=== PATIENT | male | born 1975 | race Caucasian/White ===

== ENCOUNTER 2023-12-26 23:10 | Emergency (ER) | payer OTHER, SELFPAY ==
[2023-12-26 23:14] VITALS: BP 128/74; PULSE 58; RESP 16; TEMP 36.5; O2SAT 97; BMI 24.4
--- NOTE | 2023-12-26 23:39 | ED_ITS ---
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 Pain is rated 8/10. Pt took 800 mg of Ibuprofen @ 1600 500mg of Tylenol @ 2200. Pt currently has a ACL, MCL sprain and torn meniscus. 48-year-old man presenting to the emergency department with concern of back pain. It is concentrated across the low back and radiating up his right side. Pretty intense. Any movement causes pain. Arrived in a wheelchair. Has been treating with ibuprofen acetaminophen this afternoon and did not help. 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 Arrives here with his spouse. This pain does radiate from the right back into his testicle somewhat. He is not describing any dysuria or hematuria. Does not typically have problems with his back. No noted nephrolithiasis. Related Data Home Medications ?Medication ?Instructions ?Recorded ?Confirmed No Known Home Medications 12/26/23 12/26/23 Allergies Allergy/AdvReac Type Severity Reaction Status Date / Time contrast dye Allergy Intermediate Hives Uncoded 12/26/23 23:22 Review of Systems Status of ROS: Reports: 6 or more systems reviewed and unremarkable except as noted in History and below [facility] Social History Non-prescribed substance use: denies use service: Yes Exam Narrative: Exam Narrative: Seems uncomfortable. Seated stiffly in bed legs out front of him. Breathing easily. Exam of the right limited by internal need arrangements. He does accommodate straight leg raise. Left leg straight leg raise less tolerable though not really positive without radiation into his legs. Does cause more pain in his back. Palpation is generalized across the low back and intense pa rticularly into the right side. Pain is over the SI joints as well; not isolated here. Pain also continues along with muscle tension up the right paraspinal musculatures into the low middle back. It is clearly uncomfortable to go to seated position. Heart is in slower rate. Regular rhythm. Skin is warm and dry. Abrasions/scab on the inside of his left distal forearm. Const: Vital Signs, click to edit/add: Vital Signs - 24 hr 12/26/23 23:14 12/27/23 00:13 12/27/23 00:14 Temperature 97.7 F Pulse Rate 44 L 39 L Pulse Rate [Left P ulse Oximeter] 58 L Respiratory Rate 16 Blood Pressure 93/54 L 87/57 L Blood Pressure [Ri ght Upper Arm] 128/74 Pulse Oximetry 97 95 94 Oxygen Delivery Me thod Room Air 12/27/23 00:15 12/27/23 00:16 12/27/23 00:19 Temperature Pulse Rate 40 L 45 L 47 L Pulse Rate [Left P ulse Oximeter] Respiratory Rate Blood Pressure 90/52 L 90/57 L Blood Pressure [Ri ght Upper Arm] Pulse Oximetry 94 95 96 Oxygen Delivery Me thod 12/27/23 00:20 12/27/23 00:21 12/27/23 00:22 Temperature Pulse Rate 51 L 49 L 51 L Pulse Rate [Left P ulse Oximeter] Respiratory Rate Blood Pressure 90/57 L 88/56 L Blood Pressure [Ri ght Upper Arm] Pulse Oximetry 94 95 96 Oxygen Delivery Me thod 12/27/23 00:24 12/27/23 00:25 12/27/23 00:26 Temperature Pulse Rate 53 L 50 L 50 L Pulse Rate [Left P ulse Oximeter] Respiratory Rate Blood Pressure 91/57 L 94/58 L Blood Pressure [Ri ght Upper Arm] Pulse Oximetry 93 96 94 Oxygen Delivery Me thod 12/27/23 00:30 12/27/23 00:31 12/27/23 00:35 Temperature Pulse Rate 46 L 50 L 47 L Pulse Rate [Left P ulse Oximeter] Respiratory Rate Blood Pressure 95/65 Blood Pressure [Ri ght Upper Arm] Pulse Oximetry 98 98 97 Oxygen Delivery Me thod 12/27/23 00:36 12/27/23 00:40 12/27/23 00:41 Temperature Pulse Rate 50 L 48 L 49 L Pulse Rate [Left P ulse Oximeter] Respiratory Rate Blood Pressure 94/63 94/64 Blood Pressure [Ri ght Upper Arm] Pulse Oximetry 98 97 97 Oxygen Delivery Me thod 12/27/23 00:45 12/27/23 00:46 12/27/23 00:50 Temperature Pulse Rate 46 L 47 L 44 L Pulse Rate [Left P ulse Oximeter] Respiratory Rate Blood Pressure 95/64 Blood Pressure [Ri ght Upper Arm] Pulse Oximetry 96 97 97 Oxygen Delivery Me thod Documenting provider has reviewed patient's vital signs: yes Course Vital Signs Vital signs: Initial Vital Signs Temperature 97.7 F 12/26/23 23:14 Temperature Source Temporal Artery Scan 12/26/23 23:14 Pulse Rate 58 L 12/26/23 23:14 Pulse Rhythm Regular 12/26/23 23:14 Respiratory Rate 16 12/26/23 23:14 Blood Pressure 128/74 12/26/23 23:14 Blood Pressure Mean 92 12/26/23 23:14 Blood Pressure Position Sitting 12/26/23 23:14 Pulse Oximetry 97 12/26/23 23:14 Oxygen Delivery Method Room Air 12/26/23 23:14 Vital Signs Temperature 97.7 F 12/26/23 23:14 Pulse Rate 58 L 12/26/23 23:14 Respiratory Rate 16 12/26/23 23:14 Blood Pressure 128/74 12/26/23 23:14 Pulse Oximetry 97 12/26/23 23:14 Oxygen Delivery Method Room Air 12/26/23 23:14 Temperature 97.7 F 12/26/23 23:14 Pulse Rate 44 L 12/27/23 00:50 Respiratory Rate 16 12/26/23 23:14 Blood Pressure 95/64 12/27/23 00:46 Pulse Oximetry 97 12/27/23 00:50 Oxygen Delivery Method Room Air 12/26/23 23:14 Medications Administered Medications: Generic Name Dose Route Start Last Admin Trade Name Freq PRN Reason Stop Dose Admin Sodium Chloride 1,000 mls @ 1,000 mls/hr 12/27/23 00:11 12/27/23 00:14 0.9 % Sodium Chloride 1000 Ml IV 12/27/23 01:10 1,000 mls/hr .Q1H KETAN Administration Sodium Chloride 1,000 mls @ 1,000 mls/hr 12/27/23 00:12 12/27/23 00:21 0.9 % Sodium Chloride 1000 Ml IV 12/27/23 01:11 1,000 mls/hr .Q1H ONE Administration Discontinued Medications Generic Name Dose Route Start Last Admin Trade Name Freq PRN Reason Stop Dose Admin Hydromorphone HCl 1 mg 12/26/23 23:45 12/26/23 23:57 Hydromorphone 0.5 Mg/0.5 Ml Inj IM 12/26/23 23:46 1 mg ONCE ONE Administration Ketorolac Tromethamine 30 mg 12/26/23 23:45 12/26/23 23:57 Ketorolac 30 Mg/Ml Inj IM 12/26/23 23:46 30 mg ONCE ONE Administration Medical Decision Making MDM Narrative Medical decision making narrative: Has some discomfort around the sacral iliac joint but I do not think this is necessarily the source. Really seems to have come placed a back strain. I do not think this is a radicular issue/slipped disc. I think would be most helpful is to break his pain and then perhaps reassess. Discussed options. Will be giving injection of Dilaudid and ketorolac. 2 minutes after receiving Dilaudid and Toradol Mr. Kennedy appears to have experienced a syncopal event. Heart was noted to be bradycardic around 30 and pressures 80s over 50s. Code blue was activated. Did not require cardiac resuscitation. Was bagged briefly. Placed in Trendelenburg and initiated normal saline on pressure bags. Has gradually continue to improve with normalizing pulse in pressures. Generally bradycardic historically. Continue to monitor. I am anticipating discharge with cyclobenzaprine prednisone and ibuprofen for back. Signing off otherwise at change of shift. Medical Records Medical records reviewed: Yes I reviewed the patient's medical records Discharge Plan Discharge Clinical Impression: Low back strain, Muscle spasm, Medication adverse effect Patient Disposition: Home w/ Parent or Adult Condition: Improved Additional Instructions: Stay well-hydrated. Would place ice packs due to recent injury. Consider alternating with warm packs. I would ice 2-3 times daily over the next few days. See handout for stretches/exercises. Prescribing cyclobenzaprine for ?relaxation, prednisone for inflammation from [facility]. Otherwise would take ibuprofen up to 800 mg per dose. Can also take up to 1000 mg of acetaminophen per dose. Alternative to the ibuprofen might be up to 500 mg of naproxen 2 times daily. Follow-up if simply not improved in about 5 days. Prescriptions: No Action No Known Home Medications Stand Alone Forms: [employer] Info Instructions
[2023-12-26] MEDS: HYDROmorphone 0.5 mg/0.5 ml inj 1 MG IM (23:57)
[2023-12-26] MEDS: KETOROLAC 30 MG/ML inj IM (23:57)
[2023-12-27] VITALS (69 sets, daily range): BP systolic 87–110; BP diastolic 52–76; PULSE 39–60; O2SAT 93–100
[2023-12-27] MEDS: 0.9 % SODIUM CHLORIDE 1000 ml 1,000 ML IV ×2 (00:14→00:21)
--- NOTE | 2023-12-27 00:30 | ED.NURSE ---
Pt given IM injection of ordered medication. Pt had sensitivity to medications. PT stated he was beginning to feel the medication start to hit. Pt color began to change to pale, head of bead lowered. Respirations stopped. CODE BLUE button pressed. BVM started on pt, 2 breaths given. Pt became conscious. MD and additional RN arrived. IV started, IV normal saline given via pressure bag. Pt placed on youth nutritional monitor. O2 placed on pt for support. Pt consciousness slowly returning.
--- OUTSIDE RECORDS SUMMARY | 2023-12-27 00:58 | XMS_ITS | Continuity of Care Document ---
Author Name [facility] Organization [facility] Care Team Providers Care Staff Air Defense Officer Name Role Phone [facility] Unavailable Unavailable Problems Combined list of problems from Department of Defense and Veterans Affairs facilities. It does not include entries that were removed or entered in error. 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 [facility] Diagnosis: ICD-10-CM M25.561 Pain in right knee Active Diagnosis [facility] Diagnosis: ICD-10-CM 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, left arm, init Active Diagnosis [facility] Diagnosis: ICD-10-CM Z46.1 Encounter for fitting and adjustment of hearing aid Active Diagnosis [facility] Diagnosis: ICD-10-CM Z01.118 Encntr for exam of ears and hearing w oth abnormal findings Active Diagnosis [facility] Diagnosis: ICD-10-CM D17.1 Benign lipomatous neoplasm of skin, subcu of trunk Active Diagnosis [facility] Medications Combined list of outpatient medications from Department of Defense and Veterans Affairs facilities.Medications provided include 1) outpatient medications from the last 15 months, and 2) patient-reported medications. Medication Details Route Status Patient Instructions Prescription Expires Prescription Number Last Dispense Date Ordering Provider Order Date Order Qty Source IBUPROFEN 600MG TAB IBUPROFE N 600MG TAB Non-VA TAKE ONE TABLET BY MOUTH THREE TIMES A DAY NEEDED Dec 18, 2016 Non-VA Document ed by: Honey HARMON Document ed at: [facility] ORAL ACTIVE PALLAVI HARMON 2016 [facility] Allergies, Adverse Reactions, Alerts Combined list of allergies from Department of Defense and Veterans Affairs facilities. It does not include entries that were removed or entered in error. Substance Category Reaction Severity Reaction type Status Date Reported Comments Source CONTRAST MEDIA Propensity to adverse reactions to drug (finding) active 7 [facility] Immunizations Combined list of available immunizations from the Department of Defense and Veterans Affairs facilities. Immunization Series Date Given Administered By Site Reaction Lot Number CVX Code Drug Box Bender Status Comments Source TDAP 2023 ANJALIGEREMIAS CASTELLANOS E LEFT DELTO ID [id number] 115 complet ed [facility] INFLUENZA, INJECTABLE, QUADRIVALENT, PRESERVATIVE FREE 2023 ANJALIVITA CASTELLANOST E LEFT DELTO ID [id number] A 150 complet ed [facility] COVID-19 (PFIZER), MRNA, LNP-S, PF, 30 MCG/0.3 ML DOSE 2020 208 complet ed Partner:Adeola OSBORNE.Admin istered by:[employer] [employer] 19.([id number]).ND C:[id number].Addr ess:[address] [place]MR[place] T.MN.55 [id number] Dosage: ML 0.3 [facility] INFLUENZA, INJECTABLE, QUADRIVALENT, PRESERVATIVE FREE 2020 150 complet ed [facility] COVID-19 (PFIZER), MRNA, LNP-S, PF, 30 MCG/0.3 ML DOSE 2 2020 208 complet ed PFR; [id number]; 1 [facility] COVID-19 (THE NOCKLIST), MRNA, LNP-S, PF, 30 MCG/0.3 ML DOSE 1 2020 208 complet ed PFR; [id number]; 1 [facility] INFLUENZA, SEASONAL, INJECTABLE, PRESERVATIVE FREE 2018 140 complet ed [facility] INFLUENZA, SEASONAL, INJECTABLE, PRESERVATIVE FREE 2017 140 complet ed [facility] TDAP 2011 115 complet ed [facility] INFLUENZA, SPLIT VIRUS, TRIVALENT, PF 2011 140 complet ed [facility] TDAP 2011 115 complet ed [facility] Results Combined list of recent chemistry, hematology and other laboratory results from Department of Defense and Veterans Affairs, ranging from 15 months to all on record, depending upon the facility. Order Name Results Value Reference Range Date Interpretation Specimen Comments Source BASIC METABOLI C PANEL+MG CREATININE [MASS/VOLU ME] IN SERUM OR PLASMA 1.0 mg/dL 0.7 - 1.2 07/22 Specimen Type: PLASMA No comment entered. Ordering Provider: ASH MCGILL Report Released Date/Time: Jul 16, 2022 10:55 AM Reporting Lab: [facility] [address] Performing Lab: [facility] [address] [place] [facility] BASIC METABOLI C PANEL+MG UREA NITROGEN [MASS/VOLU ME] IN SERUM OR PLASMA 13 mg/dL 8 - 26 07/22 Specimen Type: PLASMA No comment entered. Ordering Provider: ASH MCGILL Report Released Date/Time: Jul 16, 2022 10:55 AM Reporting Lab: [facility] [address] Performing Lab: [facility] [address] [place] [facility] BASIC METABOLI C PANEL+MG GLUCOSE [MASS/VOLU ME] IN SERUM OR PLASMA 116 mg/dL 70 - 100 07/22 H Specimen Type: PLASMA No comment entered. Ordering Provider: ASH MCGILL Report Released Date/Time: Jul 16, 2022 10:55 AM Reporting Lab: [facility] [address] Performing Lab: [facility] [address] [place] [facility] BASIC METABOLI C PANEL+MG SODIUM [MOLES/VOL UME] IN SERUM OR PLASMA 141 mmol/L 136 - 145 07/22 Specimen Type: PLASMA No comment entered. Ordering Provider: ASH MCGILL Report Released Date/Time: Jul 16, 2022 10:55 AM Reporting Lab: [facility] [address] Performing Lab: [facility] [address] [place] [facility] BASIC METABOLI C PANEL+MG POTASSIUM [MOLES/VOL UME] IN SERUM OR PLASMA 3.8 mmol/L 3.5 - 5.1 07/22 Specimen Type: PLASMA No comment entered. Ordering Provider: ASH MCGILL Report Released Date/Time: Jul 16, 2022 10:55 AM Reporting Lab: [facility] [address] Performing Lab: [facility] [address] [place] [facility] BASIC METABOLI C PANEL+MG CHLORIDE [MOLES/VOL UME] IN SERUM OR PLASMA 107 mmol/L 98 - 107 07/22 Specimen Type: PLASMA No comment entered. Ordering Provider: ASH MCGILL Report Released Date/Time: Jul 16, 2022 10:55 AM Reporting Lab: [facility] [address] Performing Lab: [facility] [address] [place] [facility] BASIC METABOLI C PANEL+MG CARBON DIOXIDE, TOTAL [MOLES/VOL UME] IN SERUM OR PLASMA 27 mmol/L 22 - 29 07/22 Specimen Type: PLASMA No comment entered. Ordering Provider: ASH MCGILL Report Released Date/Time: Jul 16, 2022 10:55 AM Reporting Lab: [facility] [address] Performing Lab: [facility] [address] [place] [facility] BASIC METABOLI C PANEL+MG CALCIUM [MASS/VOLU ME] IN SERUM OR PLASMA 9.4 mg/dL 8.4 - 10.2 07/22 Specimen Type: PLASMA No comment entered. Ordering Provider: ASH MCGILL Report Released Date/Time: Jul 16, 2022 10:55 AM Reporting Lab: [facility] [address] Performing Lab: [facility] [address] [place] [facility] BASIC METABOLI C PANEL+MG MAGNESIUM [MASS/VOLU ME] IN SERUM OR PLASMA 2.2 mg/dL 1.6 - 2.6 07/22 Specimen Type: PLASMA No comment entered. Ordering Provider: ASH MCGILL Report Released Date/Time: Jul 16, 2022 10:55 AM Reporting Lab: [facility] [address] Performing Lab: [facility] [address] [place] [facility] BASIC METABOLI C PANEL+MG ANION GAP IN SERUM OR PLASMA 7 mmol/L 5 - 15 07/22 Specimen Type: PLASMA No comment entered. Ordering Provider: ASH MCGILL Report Released Date/Time: Jul 16, 2022 10:55 AM Reporting Lab: [facility] [address] Performing Lab: [facility] [address] [place] [facility] BASIC METABOLI C PANEL+MG GLOMERULAR FILTRATION RATE/1.73 SQ M.PREDICTE D [VOLUME RATE/AREA] IN SERUM, PLASMA OR BLOOD BY CREATININE -BASED FORMULA (CKD-EPI 2020) >90 60 07/22 Specimen Type: PLASMA No comment entered. Ordering Provider: ASH MCGILL Report Released Date/Time: Jul 16, 2022 10:55 AM Reporting Lab: [facility] [address] Performing Lab: [facility] [address] [place] [facility] LIPID PANEL,NO N-FASTIN G CHOLESTERO L [MASS/VOLU ME] IN SERUM OR PLASMA 167 mg/dL <199 - 199 07/22 Specimen Type: PLASMA No comment entered. Ordering Provider: ASH MCGILL Report Released Date/Time: Jul 16, 2022 10:55 AM Reporting Lab: [facility] [address] Performing Lab: [facility] [address] [place] [facility] LIPID PANEL,NO N-FASTIN G CHOLESTERO L IN HDL [MASS/VOLU ME] IN SERUM OR PLASMA 36 mg/dL 40 07/22 L Specimen Type: PLASMA No comment entered. Ordering Provider: ASH MCGILL Report Released Date/Time: Jul 16, 2022 10:55 AM Reporting Lab: [facility] [address] Performing Lab: [facility] [address] [place] [facility] LIPID PANEL,NO N-FASTIN G CHOLESTERO L IN LDL [MASS/VOLU ME] IN SERUM OR PLASMA BY CALCULATIO N 108 mg/dL <99 - 99 07/22 H Specimen Type: PLASMA No comment entered. Ordering Provider: ASH MCGILL Report Released Date/Time: Jul 16, 2022 10:55 AM Reporting Lab: [facility] [address] Performing Lab: [facility] [address] [place] [facility] LIPID PANEL,NO N-FASTIN G CHOLESTERO L IN VLDL [MASS/VOLU ME] IN SERUM OR PLASMA BY CALCULATIO N 23 mg/dL <29 - 29 07/22 Specimen Type: PLASMA No comment entered. Ordering Provider: ASH MCGILL Report Released Date/Time: Jul 16, 2022 10:55 AM Reporting Lab: [facility] [address] Performing Lab: [facility] [address] [place] [facility] LIPID PANEL,NO N-FASTIN G CHOLESTERO L NON HDL [MASS/VOLU ME] IN SERUM OR PLASMA 131 mg/dL <129 - 129 07/22 H Specimen Type: PLASMA No comment entered. Ordering Provider: ASH MCGILL Report Released Date/Time: Jul 16, 2022 10:55 AM Reporting Lab: [facility] [address] Performing Lab: [facility] [address] [place] [facility] LIPID PANEL,NO N-FASTIN G TRIGLYCERI DE [MASS/VOLU ME] IN SERUM OR PLASMA 113 mg/dL <149 - 149 07/22 Specimen Type: PLASMA No comment entered. Ordering Provider: ASH MCGILL Report Released Date/Time: Jul 16, 2022 10:55 AM Reporting Lab: [facility] [address] Performing Lab: [facility] [address] [place] [facility] OCCULT BLOOD FIT X1 SCREEN HEMOGLOBIN .GASTROINT ESTINAL.LO WER [PRESENCE] IN STOOL BY IMMUNOASSA Y --1ST SPECIMEN Negative 07/21 Specimen Type: FECES No comment entered. Ordering Provider: ASH MCGILL Report Released Date/Time: Jul 16, 2022 09:42 AM Reporting Lab: [facility] [address] Performing Lab: [facility] [address] [place] [facility] HEMOGLOB IN A1C HEMOGLOBIN A1C/HEMOGL OBIN.TOTAL IN BLOOD 5.1 4.0 - 6.0 07/16 Specimen Type: BLOOD Comment: Values obtained from A1C measurement s can vary. For typical A1C assays, a reported value of 7.0 could actually be between 6.7 and 7.3 if measured by a reference method. A reported value of 9.0 could actually be between 8.7 and 9.3. Ref: http://www. ngsp.org/[place] Pdata.asp Ordering Provider: ASH MCGILL Report Released Date/Time: May 21, 2022 03:15 PM Reporting Lab: [facility] [address] Performing Lab: [facility] [address] [place] [facility] BASIC METABOLI C PANEL+MG CREATININE [MASS/VOLU ME] IN SERUM OR PLASMA 0.9 mg/dL 0.7 - 1.2 07/16 Specimen Type: PLASMA No comment entered. Ordering Provider: ASH MCGILL Report Released Date/Time: May 21, 2022 03:15 PM Reporting Lab: [facility] [address] Performing Lab: [facility] [address] [place] [facility] BASIC METABOLI C PANEL+MG UREA NITROGEN [MASS/VOLU ME] IN SERUM OR PLASMA 16 mg/dL 8 - 26 07/16 Specimen Type: PLASMA No comment entered. Ordering Provider: ASH MCGILL Report Released Date/Time: May 21, 2022 03:15 PM Reporting Lab: [facility] [address] Performing Lab: [facility] [address] [place] [facility] BASIC METABOLI C PANEL+MG GLUCOSE [MASS/VOLU ME] IN SERUM OR PLASMA 96 mg/dL 70 - 100 07/16 Specimen Type: PLASMA No comment entered. Ordering Provider: ASH MCGILL Report Released Date/Time: May 21, 2022 03:15 PM Reporting Lab: [facility] [address] Performing Lab: [facility] [address] [place] [facility] BASIC METABOLI C PANEL+MG SODIUM [MOLES/VOL UME] IN SERUM OR PLASMA 141 mmol/L 136 - 145 07/16 Specimen Type: PLASMA No comment entered. Ordering Provider: ASH MCGILL Report Released Date/Time: May 21, 2022 03:15 PM Reporting Lab: [facility] [address] Performing Lab: [facility] [address] [place] [facility] BASIC METABOLI C PANEL+MG POTASSIUM [MOLES/VOL UME] IN SERUM OR PLASMA 4.1 mmol/L 3.5 - 5.1 07/16 Specimen Type: PLASMA No comment entered. Ordering Provider: ASH MCGILL Report Released Date/Time: May 21, 2022 03:15 PM Reporting Lab: [facility] [address] Performing Lab: [facility] [address] [place] [facility] BASIC METABOLI C PANEL+MG CHLORIDE [MOLES/VOL UME] IN SERUM OR PLASMA 108 mmol/L 98 - 107 07/16 H Specimen Type: PLASMA No comment entered. Ordering Provider: ASH MCGILL Report Released Date/Time: May 21, 2022 03:15 PM Reporting Lab: [facility] [address] Performing Lab: [facility] [address] [place] [facility] BASIC METABOLI C PANEL+MG CARBON DIOXIDE, TOTAL [MOLES/VOL UME] IN SERUM OR PLASMA 27 mmol/L 22 - 29 07/16 Specimen Type: PLASMA No comment entered. Ordering Provider: ASH MCGILL Report Released Date/Time: May 21, 2022 03:15 PM Reporting Lab: [facility] [address] Performing Lab: [facility] [address] [place] [facility] BASIC METABOLI C PANEL+MG CALCIUM [MASS/VOLU ME] IN SERUM OR PLASMA 9.3 mg/dL 8.4 - 10.2 07/16 Specimen Type: PLASMA No comment entered. Ordering Provider: ASH MCGILL Report Released Date/Time: May 21, 2022 03:15 PM Reporting Lab: [facility] [address] Performing Lab: [facility] [address] [place] [facility] BASIC METABOLI C PANEL+MG MAGNESIUM [MASS/VOLU ME] IN SERUM OR PLASMA 2.2 mg/dL 1.6 - 2.6 07/16 Specimen Type: PLASMA No comment entered. Ordering Provider: ASH MCGILL Report Released Date/Time: May 21, 2022 03:15 PM Reporting Lab: [facility] [address] Performing Lab: [place] [address] [place] [facility] BASIC METABOLI C PANEL+MG ANION GAP IN SERUM OR PLASMA 6 mmol/L 5 - 15 07/16 Specimen Type: PLASMA No comment entered. Ordering Provider: ASH MCGILL Report Released Date/Time: May 21, 2022 03:15 PM Reporting Lab: [facility] [address] Performing Lab: [facility] [address] [place] [facility] BASIC METABOLI C PANEL+MG GLOMERULAR FILTRATION RATE/1.73 SQ M.PREDICTE D [VOLUME RATE/AREA] IN SERUM, PLASMA OR BLOOD BY CREATININE -BASED FORMULA (CKD-EPI) >90 60 07/16 Specimen Type: PLASMA No comment entered. Ordering Provider: ASH MCGILL Report Released Date/Time: May 21, 2022 03:15 PM Reporting Lab: [facility] [address] Performing Lab: [facility] [address] [place] [facility] CBC & DIFF LEUKOCYTES [#/VOLUME] IN BLOOD BY AUTOMATED COUNT 4.64 10*3/uL 4.0 - 11.0 07/16 Specimen Type: BLOOD Comment: Automated Differentia l Performed Ordering Provider: ASH MCGILL Report Released Date/Time: Jul 16, 2022 09:42 AM Reporting Lab: [facility] [address] Performing Lab: [facility] [address] [place] [facility] CBC & DIFF ERYTHROCYT ES [#/VOLUME] IN BLOOD BY AUTOMATED COUNT 4.94 10*6/uL 4.6 - 6.2 07/16 Specimen Type: BLOOD Comment: Automated Differentia l Performed Ordering Provider: ASH MCGILL Report Released Date/Time: Jul 16, 2022 09:42 AM Reporting Lab: [facility] [address] Performing Lab: [facility] [address] [place] [facility] CBC & DIFF HEMOGLOBIN [MASS/VOLU ME] IN BLOOD 15.0 g/dL 13.5 - 17.9 07/16 Specimen Type: BLOOD Comment: Automated Differentia l Performed Ordering Provider: AHS MCGILL Report Released Date/Time: Jul 16, 2022 09:42 AM Reporting Lab: [facility] [address] Performing Lab: [facility] [address] [place] [facility] CBC & DIFF HEMATOCRIT [VOLUME FRACTION] OF BLOOD BY AUTOMATED COUNT 45.0 41 - 54 07/16 Specimen Type: BLOOD Comment: Automated Differentia l Performed Ordering Provider: ASH MCGILL Report Released Date/Time: Jul 16, 2022 09:42 AM Reporting Lab: [facility] [address] Performing Lab: [facility] [address] [place] [facility] CBC & DIFF MCV [ENTITIC VOLUME] BY AUTOMATED COUNT 91.1 fL 80 - 100 07/16 Specimen Type: BLOOD Comment: Automated Differentia l Performed Ordering Provider: ASH MCGILL Report Released Date/Time: Jul 16, 2022 09:42 AM Reporting Lab: [facility] [address] Performing Lab: [facility] [address] [place] [facility] CBC & DIFF MCH [ENTITIC MASS] BY AUTOMATED COUNT 30.4 pg 27 - 33 07/16 Specimen Type: BLOOD Comment: Automated Differentia l Performed Ordering Provider: ASH MCGILL Report Released Date/Time: Jul 16, 2022 09:42 AM Reporting Lab: [facility] [address] Performing Lab: [facility] [address] [place] [facility] CBC & DIFF MCHC [MASS/VOLU ME] BY AUTOMATED COUNT 33.3 g/dL 32.0 - 37.5 07/16 Specimen Type: BLOOD Comment: Automated Differentia l Performed Ordering Provider: ASH MCGILL Report Released Date/Time: Jul 16, 2022 09:42 AM Reporting Lab: [facility] [address] Performing Lab: [facility] [address] [place] [facility] CBC & DIFF PLATELETS [#/VOLUME] IN BLOOD BY AUTOMATED COUNT 202 10*3/uL 150 - 400 07/16 Specimen Type: BLOOD Comment: Automated Differentia l Performed Ordering Provider: ASH MCGILL Report Released Date/Time: Jul 16, 2022 09:42 AM Reporting Lab: [facility] [address] Performing Lab: [facility] [address] [place] [facility] CBC & DIFF PLATELET MEAN VOLUME [ENTITIC VOLUME] IN BLOOD BY AUTOMATED COUNT 11.1 fL 7.4 - 10.4 07/16 H Specimen Type: BLOOD Comment: Automated Differentia l Performed Ordering Provider: ASH MCGILL Report Released Date/Time: Jul 16, 2022 09:42 AM Reporting Lab: [facility] [address] Performing Lab: [facility] [address] [place] [facility] CBC & DIFF NEUTROPHIL S/100 LEUKOCYTES IN BLOOD BY MANUAL COUNT 53.5 07/16 Specimen Type: BLOOD Comment: Automated Differentia l Performed Ordering Provider: ASH MCGILL Report Released Date/Time: Jul 16, 2022 09:42 AM Reporting Lab: [facility] [address] Performing Lab: [facility] [address] [place] [facility] CBC & DIFF LYMPHOCYTE S/100 LEUKOCYTES IN BLOOD BY MANUAL COUNT 28.2 07/16 Specimen Type: BLOOD Comment: Automated Differentia l Performed Ordering Provider: ASH MCGILL Report Released Date/Time: Jul 16, 2022 09:42 AM Reporting Lab: [facility] [address] Performing Lab: [facility] [address] [place] [facility] CBC & DIFF MONOCYTES/ 100 LEUKOCYTES IN BLOOD BY AUTOMATED COUNT 12.7 07/16 Specimen Type: BLOOD Comment: Automated Differentia l Performed Ordering Provider: ASH MCGILL Report Released Date/Time: Jul 16, 2022 09:42 AM Reporting Lab: [facility] [address] Performing Lab: [facility] [address] [place] [facility] CBC & DIFF EOSINOPHIL S/100 LEUKOCYTES IN BLOOD BY AUTOMATED COUNT 3.7 07/16 Specimen Type: BLOOD Comment: Automated Differentia l Performed Ordering Provider: ASH MCGILL Report Released Date/Time: Jul 16, 2022 09:42 AM Reporting Lab: [facility] [address] Performing Lab: [facility] [address] [place] [facility] CBC & DIFF BASOPHILS/ 100 LEUKOCYTES IN BLOOD BY MANUAL COUNT 1.7 07/16 Specimen Type: BLOOD Comment: Automated Differentia l Performed Ordering Provider: ASH MCGILL Report Released Date/Time: Jul 16, 2022 09:42 AM Reporting Lab: [facility] [address] Performing Lab: [facility] [address] [place] [facility] CBC & DIFF ERYTHROCYT E DISTRIBUTI ON WIDTH [RATIO] BY AUTOMATED COUNT 12.0 11.5 - 14.5 07/16 Specimen Type: BLOOD Comment: Automated Differentia l Performed Ordering Provider: ASH MCGILL Report Released Date/Time: Jul 16, 2022 09:42 AM Reporting Lab: [facility] [address] Performing Lab: [facility] [address] [place] [facility] CBC & DIFF LYMPHOCYTE S [#/VOLUME] IN BLOOD BY AUTOMATED COUNT 1.31 10*3/uL 1.0 - 4.0 07/16 Specimen Type: BLOOD Comment: Automated Differentia l Performed Ordering Provider: ASH MCGILL Report Released Date/Time: Jul 16, 2022 09:42 AM Reporting Lab: [facility] [address] Performing Lab: [facility] [address] [place] [facility] CBC & DIFF MONOCYTES [#/VOLUME] IN BLOOD BY AUTOMATED COUNT 0.59 10*3/uL 0.1 - 1.0 07/16 Specimen Type: BLOOD Comment: Automated Differentia l Performed Ordering Provider: ASH MCGILL Report Released Date/Time: Jul 16, 2022 09:42 AM Reporting Lab: [facility] [address] Performing Lab: [facility] [address] [place] [facility] CBC & DIFF NEUTROPHIL S [#/VOLUME] IN BLOOD BY AUTOMATED COUNT 2.48 10*3/uL 2.0 - 7.7 07/16 Specimen Type: BLOOD Comment: Automated Differentia l Performed Ordering Provider: ASH MCGILL Report Released Date/Time: Jul 16, 2022 09:42 AM Reporting Lab: [facility] [address] Performing Lab: [facility] [address] [place] [facility] CBC & DIFF EOSINOPHIL S [#/VOLUME] IN BLOOD BY AUTOMATED COUNT 0.17 10*3/uL 0 - 0.5 07/16 Specimen Type: BLOOD Comment: Automated Differentia l Performed Ordering Provider: ASH MCGILL Report Released Date/Time: Jul 16, 2022 09:42 AM Reporting Lab: [facility] [address] Performing Lab: [facility] [address] [place] [facility] CBC & DIFF BASOPHILS [#/VOLUME] IN BLOOD BY AUTOMATED COUNT 0.08 10*3/uL 0 - 0.2 07/16 Specimen Type: BLOOD Comment: Automated Differentia l Performed Ordering Provider: ASH MCGILL Report Released Date/Time: Jul 16, 2022 09:42 AM Reporting Lab: [facility] [address] Performing Lab: [facility] [address] [place] [facility] CBC & DIFF IG(META,MY NATALI,PRO) 0.2 07/16 Specimen Type: BLOOD Comment: Automated Differentia l Performed Ordering Provider: ASH MCGILL Report Released Date/Time: Jul 16, 2022 09:42 AM Reporting Lab: [facility] [address] Performing Lab: [facility] [address] [facility] CBC & DIFF IMMATURE GRANULOCYT ES [PRESENCE] IN BLOOD BY AUTOMATED COUNT 0.01 10*3/uL 0 - 0.1 07/16 Specimen Type: BLOOD Comment: Automated Differentia l Performed Ordering Provider: ASH MCGILL Report Released Date/Time: Jul 16, 2022 09:42 AM Reporting Lab: [facility] [address] Performing Lab: [facility] [address] [facility] Vital Signs Combined list of inpatient and outpatient Vital Signs from Department of Defense and Veterans Affairs, ranging from 12 months to all on record, depending upon the facility. Vital Sign Value Date Comments Source Encounters Combined list of: 1) Encounters from Department of Veterans Affairs facilities going back up to thelast 18 months. 2) Encounters from the Department of Defense facilities going back up to 280 months. Location Location Details Encounter Type Encounter Number Reason For Visit Attending Provider ADM Date DC Date Status Disposition Source [facility] Outpatient Encounter 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
CHUCK SAGE 01/02 [facility] CONFORMITY EVALUATION [id number] Diagnos is: ICD-10- CM Z46.1 Encount er for fitting and adjustm ent of hearing aid<br/ > CHUCK SAGE 03/06 [facility] HEARING AID REPAIR/MOD IFYING [id number] Diagnos is: ICD-10- CM Z46.1 Encount er for fitting and adjustm ent of hearing aid<br/ > ALEKSANDR SERRANO 04/10 [facility] Outpatient Encounter [id number] 06/29 [facility] Outpatient Encounter [id number] 07/22 [facility] OFFICE O/P EST MOD 30 MIN [id number] Diagnos is: ICD-10- CM 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
CHINMAY MCGILL A 07/22 [facility] Outpatient Encounter [id number] 10/04 [facility] Outpatient Encounter [id number] JOHANNY SÁNCHEZ 10/07 [facility] Outpatient Encounter [id number] 10/19 [facility] Outpatient Encounter [id number] 11/03 [facility] OFFICE O/P EST MOD 30 MIN [id number] Diagnos is: ICD-10- CM M25.561 Pain in right knee
Nikolai BOWSER L 11/05 [facility] ORTHOTIC MGMT&TRAIN G 1ST ENC [id number] Diagnos is: ICD-10- CM M25.561 Pain in right knee
KEE MARCUS 11/05 [facility] Outpatient Encounter [id number] 12/07 [facility] Procedures Combined list of: 1) Procedures from Department of Veterans Affairs facilities going back up to thelast 18 months, not all [place] non-surgical procedures are included; 2) All procedures from the Department of Defense facilities. Procedure Procedure Type Code Date Perfomer Comments Sourc e FITTING OF SPECTACLES, EXCEP T FOR APHAKIA; MONOFOCAL 01/24/2002 [facility] HEPATITIS B VACCINE (HEPB), ADULT DOSAGE, 3 DOSE SCHEDULE, FOR INTRAMUSCULAR USE 03/05/2004 [facility] UNLISTED VACCINE/TOXOID 05/24/2003 [facility] HEPATITIS B VACCINE (HEPB), ADULT DOSAGE, 3 DOSE SCHEDULE, FOR INTRAMUSCULAR USE 05/03/2003 [facility] EXERCISE CLASSES, NON-PHYSICIAN PROVIDER, PER SESSION 04/29/2002 [facility] Social History Combined list of available smoking, tobacco, and other social history from Department of Defense and Veterans Affairs facilities. Social History Type Response Date Comment Sourc e Tobacco smoking status [place]-TOBACCO NEVER USED 07/23/2023 [place] [facility] of [facility] 30 [facility] WA[facility]UP 07/16/2022 [facility] of [facility] OME DAYS 07/20/2020 [facility] History of [facility] 01/07/2019 [facility] History of tobacco use LIFETIME NON-TOBA CONCESSION SUPERVISOR USER 12/18/2016 [facility] This section is an empty social history section. [facility] Plan of Care List of future care activities from Department of Veterans Affairs facilities. Additional future care activities may be listed in the Assessment and Plan section. 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
--- OUTSIDE RECORDS SUMMARY | 2023-12-27 00:58 | XMS_ITS | Clinical Summary ---
Author Organization [facility] Address [place], [place] [address] Care Team Providers Care Press Operator [employer] Name Role Phone [place] Primary Care Provider [phone] Medications No known medications Active Problems No known active problems Social History Tobacco Use Types Packs/Day Years Used Date Smoking Tobacco: Some Days Pipe Started: 2021 Passive Smoke Exposure: Never Smokeless Tobacco: Never Tobacco Cessation:Ready to Q uit: No; Counseling Given: No Alcohol Use Standard Drinks/Week Comments Yes 0 (1 standard drink = 0.6 oz pur e alcohol) Sex and Gender Information Value Date Recorded Sex Assigned at Not on file Gender Identity Not on file Sexual Orientation Not on file Obstetrics History Plan of Treatment Health Maintenance Due Date Last Done Comments Tdap 1985 Depression screening for age 12+ 1986 HIV for age 15-65 1989 BMI (ht and wt on same day) for age 18+ 1992 Hepatitis C screening for ag e 18-79 1992 Tetanus booster 1994 Colonoscopy through age 75 07/14/2019 Lipids for age 45-75 07/14/2019 COVID-19 vaccine series ( season) 2023 Influenza for age 9-49 12/20/2023 Pneumococcal series for age 6-64 Aged Out No longer eligible based on patient's age to complete this topic Care Teams Press Operator [employer] Relationship Specialty Start Date End Date [place] [employer] [place] [phone] PCP - General 06/22/23
--- OUTSIDE RECORDS SUMMARY | 2023-12-27 00:58 | XMS_ITS | Encounter Summary ---
Author Name [facility] [place] [facility] Address [address] [place] [address] Care Team Providers Care Company Pilot Name Role Phone ADRIAN CERVANTES Primary Care Provider Unavailabl e Insurance Providers: All historical and current Section Date Range: From patient's date of to the date document was created. This section includes the names of all active insurance providers for the patient. Insurance Provider Type of Coverage Plan Name Start of Policy Coverage End of Policy Coverage Group Number Member ID Insurance Provider's Telephone Number Policy Mercer's Name Patient's Relationship to Policy Mercer [facility] AID (WNR) May 21, 2010 [id number] [phone] LUCY COPELAND PATIENT Selected Encounter This section includes the information on record at [place] for the Encounter. Date/Time Encounter Type Encounter Description Reason Provider Source Nov 06, 2023 02:30 PM OFFICE O/P EST MOD 30 MIN PRIMARY CARE/MEDICINE ICD-10-CM M25.561 Pain in right knee MARGOT LI E Encounter Template Text not used by [place] Assessments - Encounter Diagnoses This section includes the primary and secondary diagnoses documented for the Encounter. Date/Time Primary/Secondary Diagnosis Diagnosis Name Provider Source Nov 06, 2023 02:57 PM PRIMARY Pain in right knee QUE LI [facility] Plan of Treatment: Future Appointments (+ 6 months) and Future Tests (+/- 45 days) The Plan of Treatment section includes future care activities for the patient from all [facility]. This section includes future appointments and future orders which are active, pending or scheduled. Future Appointments This section includes appointments that were scheduled to occur 6 months from the date of the Encounter, up to a maximum of 20 appointments. The data comes from all [place] treatment facilities. Appointment Date/Time Appointment Type Appointme nt Facility Name Dec 07, 2023 07:45 PM [facility] Feb 02, 2024 03:00 PM AMBULATORY - SURGERY [facility] Active, Pending, and Scheduled Orders This section includes a listing of several types of active, pending, and scheduled orders, including clinic medications orders, diagnostic test orders, procedure orders and consult orders; where the start date of the order is 45 days before the date of the Encounter or 45 days after the date of theEncounter. The data comes from all [place] treatment facilities. Test Date/Time Test Type Test Details Facility Name Dec 08, 2023 03:54 PM Consult Order ORTHOPEDIC S OUTPT-HIP/KNEE Cons [employer] Choice [facility] Vital Signs: All taken on the encounter date This section contains inpatient and outpatient Vital Signs collected on the date of the Encounter. Date/Time Temperature Pulse Blood Pressure Respiratory Rate SP02 Pain Height Weight Body Mass Index Source Nov 06, 2023 02:32 PM 97.9 54 117/76 16 98 2 182.6 27 [facility] Social History: Smoking Status (Most current) and Tobacco Use (All prior to encounter date) This section includes the most current, and the historical, smoking and tobacco- related health factors from the [place] facility where the Encounter took place. Current Smoking Status This section includes the most current smoking, or tobacco-related health factor, from the [place] facility where the Encounter took place. Date/Time Current Smoking Status Comment Samanta portillo Jul 23, 2023 02:00 PM NE-TOBACCO NEVER USED [facility] Tobacco Use History This section includes a history of the smoking, or tobacco-related health factors, that were collected on or before the date of the Encounter. The data comes from the [place] facility where the Encounter took place. Date/Time Smoking Status/Tobacco Use Comment F acility Jul 16, 2022 10:00 AM NE-TOBACCO DOESNT USE WI 30 MIN WAKEUP [facility] Jul 16, 2022 10:00 AM VA-TOBACCO USE 1 TO < 5 YEARS [facility] Jul 16, 2022 10:00 AM VA-TOBACCO USE ADVICE [facility] Jul 16, 2022 10:00 AM VA-TOBACCO USE TEST BORER HELPER NO [facility] Jul 16, 2022 10:00 AM VA-TOBACCO USE MED NO [facility] Jul 16, 2022 10:00 AM VA-TOBACCO USER SOME DAYS [facility] Jul 20, 2020 03:30 PM VA-TOBACCO DOESNT USE WI 30 MIN WAKEUP [facility] Jul 20, 2020 03:30 PM VA-TOBACCO USE 5 TO 15 YEARS [facility] Jul 20, 2020 03:30 PM VA-TOBACCO USE ADVICE [facility] Jul 20, 2020 03:30 PM VA-TOBACCO USE TEST BORER HELPER NO [facility] Jul 20, 2020 03:30 PM VA-TOBACCO USE MED NO [facility] Jul 20, 2020 03:30 PM VA-TOBACCO USER SOME DAYS [facility] Jan 07, 2019 03:22 PM VA-TOBACCO NEVER USED [facility] Dec 18, 2016 01:05 PM LIFETIME NON-TOBACCO USER [facility] Radiology Reports: +/- 30 days of the encounter Radiology Reports For cases when an order for radiology services may have been completed prior to the date of the Encounter, the report list includes the Radiology Reports that were completed up to 30 days before dateof the Encounter. For cases when an order for radiology services may have been completed after the date of the Encounter, the report list also includes the Radiology Reports that were completed up to30 days after date of the Encounter. The data comes from all [facility] facilities. Date/Time Radiology Report Provider Source Nov 06, 2023 02:57 PM KNEE RIGHT 3 VIEWS : DAVID COPELAND [id number] -[phone] M Ex Date: NOV 06, 2023@14:57 Req Phys: MARYBETH LI Loc: [facility] PACT ROVER 4F (Req'g Loc) Img Loc: MAIN X-RAY Service: [place] [address] (Case [id number] COMPLETE) KNEE RIGHT 3 VIEWS (RAD Detailed) CPT:49287 Proc Modifiers : STANDING RIGHT Reason for Study: persisting medial right knee pain Clinical History: persisting medial right knee pain Responsible provider name and phone number to notify for critical findings if other than user placing the order and pager listed below: User placing orders pager: [phone] LAST CREATININE 1.0 (07/23/23) Report Status: Verified Date Reported: NOV 06, 2023 Date Verified: NOV 06, 2023 Assistant Coach E-Sig:/ES/KEITH SALAZAR MD Report: EXAMINATION: KNEE RIGHT 3 VIEWS, 11/06/2023 2:57 PM COMPARISON: None HISTORY: Reason for Study: persisting medial right knee pain persisting medial right knee pain Responsible provider name and phone number to notify for critical findings if other than user placing the order and pager listed below: User placing orders pager: [phone] LAST CREATININE 1.0 (07/23/23) Impression: Slight/early narrowing of the medial compartment joint space. Lateral and patellofemoral compartment joint spaces appear maintained. No acute fracture or dislocation is identified. Trace amount of suprapatellar joint fluid. Fabella, anatomic variant. Primary Interpreting Staff: KEITH SALAZAR MD, RADIOLOGIST (Assistant Coach) /JRT KEITH SALAZAR [facility] Encounter Notes: All associated encounter notes This section contains the clinical notes associated to the Encounter. Date/Time Encounter Note(s) Provider Source Nov 06, 2023 02:43 PM INTERNAL MEDICINE NOTE: LOCAL TITLE: MEDICINE CLINIC NOTE STANDARD TITLE: INTERNAL MEDICINE NOTE DATE OF NOTE: NOV 06, 2023@14:43 ENTRY DATE: NOV 06, 2023@14:43:54 AUTHOR: MARYBETH LI COSIGNER: URGENCY: STATUS: COMPLETED MEDICINE CLINIC NOTE Has ADDENDA Nurse's notes reviewed from today. DAVID COPELAND is a 48 year old MALE who presents to the [facility] (primary IMDL-aevhfo-dcw available) for right knee pain. Patient reports right medial knee pain for the past 7-8 months. Noted an insidious onset of pain in the knee. no falls or trauma, no previous injuries or surgeries. 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 pain localized to the medial aspect. non radiating. hurts all the time now, wakes him from sleep sometimes. feels stiff in the AM. no redness or swelling. has not done anything for treatment. Active problems - Computerized Problem List is the source for the followin. Impacted cerumen in right ear 2. Seborrheic dermatitis 3. Ulnar neuropathy of left arm 4. Exposure to potentially hazardous substance ([facility] [id number]) - Entered through [facility] MARIA ALEJANDRA Documentation Initiative Allergies: CONTRAST MEDIA (Dec 18, 2016) Active and Recently Outpatient Medications (including Supplies): Active Non-VA Medications Status 1) Non-VA IBUPROFEN 600MG TAB 600MG MOUTH THREE TIMES A ACTIVE DAY NEEDED MEDICATION RECONCILIATION Outpatient At this visit I have reviewed the medication list, and discussed relevant medications with the patient/surrogate. An updated patient medication list was given to the participant(s). (x) No Change ( ) Change/New: I have noted this on the patient's copy of the medication list. Education on NEW Medication: I have reviewed the medication list for possible drug:drug interactions or contraindications prior to ordering NEW medications during this visit. ( )Patient instructed. I noted new medication on patient's copy of the medication list. Patient sent to Pharmacist for education on new medication. ( )Patient ( )Family Member ( )Caregiver indicated readiness to learn and has been instructed on action, dose, frequency and side effects of the new medication and I noted new medication on participant's copy of the medication list. ( ) Verbalizes understanding of instructions. ( ) Needs additional reinforcement of instructions(sent to Pharmacist). ( )Patient unable to participate in learning/instruction. Family/Social History: () Not applicable to today's visit. EXAM: VS: Temp: 97.9 F [36.6 C] (11/06/2023 14:32) BP: 117/76 (11/06/2023 14:32) Pulse:54 (11/06/2023 14:32) Resp: 16 (11/06/2023 14:32) Pain: 2 (11/06/2023 14:32) Weight: WEIGHTS IN LAST 6 MONTHS: 182.6 (NOV 06, 2023@14:32:23) 186 (JUL 23, 2023@13:14:16) General Appearance: NAD Mental Status: A&Ox3 Neck: Chest/T Spine: Cardiac: JVP: Lungs: Abdomen: Extremities: right knee without erythema or edema or deformity. has full active and passive rom. ttp along the medial aspect of the knee. no laxity noted. did have pain on the valgus test. Edema ()None ()1+ ()2+ ()3+ ()4+ Pulses ()HOSE COUPLING JOINER ()1+ ()2+ ()3+ ()4+ Gait: Data/Labs: LAB RESULTS LAST 48 HRS - NONE FOUND ( )Patient was informed of available lab, imaging, and other study results associated with today's visit. Assessment and Plan: #. Right Knee Pain Possible MCL injury. will obtain an XR and get him a brace for the knee. Rec he start RICE. As his symptoms have been present for >6 months and seem to be worsening, will obtain an MRI if XR is normal. Consider Ortho consult pending those results. (x) Patient/Caregiver indicates readiness to learn, verbalizes understanding, agreement and satisfaction with the treatment plan. Patient/Caregiver doesn't have any further questions today. /justin/ Marybeth Li PA-C Physician Candy Supervisor Signed: 11/06/2023 14:57 11/17/2023 ADDENDUM STATUS: COMPLETED reviewed knee xray by phone. he reports feeling a better, but not not to baseline. as described above, no report of injury/strain per se. suggested starting w/PT, which he is agreeable to, before pursuing more imaging. /es/ T. Tova Cervantes MD STAFF PHYSICIAN Signed: 11/17/2023 10:29 MARYBETH LI [facility] Nov 06, 2023 02:35 PM INTERNAL MEDICINE OUTPATIENT NOTE: LOCAL TITLE: MEDICINE CLINIC NURSING NOTE STANDARD TITLE: INTERNAL MEDICINE OUTPATIENT NOTE DATE OF NOTE: NOV 06, 2023@14:35 ENTRY DATE: NOV 06, 2023@14:35:49 AUTHOR: NINA SHEA EXP COSIGNER: URGENCY: STATUS: COMPLETED TYPE OF VISIT: Appointment Check In Type of appointment: In-person appointment REASON FOR VISIT: R Knee pain ALLERGIES: CONTRAST MEDIA (Dec 18, 2016) VITAL SIGNS: Blood Pressure: 117/76 (11/06/2023 14:32) Pulse: 54 (11/06/2023 14:32) Respiration: 16 (11/06/2023 14:32) Temperature: 97.9 F [36.6 C] (11/06/2023 14:32) Weight: 182.6 lb [82.83 kg] (11/06/2023 14:32) Height: 69.5 in [176.5 cm] (07/23/2023 13:14) BMI: 26.6 O2 Sat: 98% (11/06/2023 14:32) Pain: 2 (11/06/2023 14:32) PAIN SCREEN: Patient is having significant pain that they would like to talk to their provider about today. Old (Chronic) (began more than 6 months ago) Patient states their average pain this past week is 6 Patient states the average number on how the chronic pain affects their enjoyment of life the past week is 5 Patient states during the past week the average number on how the pain has interfered with their general activity is 5 MEDICATION Over the Counter/Herbal Medications: The patient states that they take some outside medications and/or herbals. COVID-19 Immunization: Refused Pfizer Monovalent COVID-19 vaccine Immunization: COVID-19 (PFIZER), MRNA, LNP-S, PF, ANA ROSA-SUCROSE, 30 MCG/0.3 ML (AGES 12+ YEARS) Refusal Reason: PATIENT DECISION Patient refuses all immunization(s) in the COVID-19 group Date Documented: 11/06/23 14:37 /justin/ NINA SHEA LPN Signed: 11/06/2023 14:38 NINA SHEA [facility]
--- OUTSIDE RECORDS SUMMARY | 2023-12-27 00:58 | XMS_ITS | Encounter Summary ---
Author Name [facility] [place] [facility] [place] Address [address] [place] [address] Care Team Providers Care Housing Quality Standard Inspector Name Role Phone ADRIAN MCGILL Primary Care Provider Unavailabl e Insurance Providers: [...] Mercer's Name Patient's Relationship to Policy Mercer BCBS [facility] (WNR) MEDICAID MEDIC AID (WNR) May 21, 2010 [id number] [phone] LUCY COPELAND PATIENT Selected Encounter This section includes the information on record at [place] for the Encounter. Date/Time Encounter Type Encounter Description Reason Pro vider Source Oct 20, 2023 02:13 PM Outpatient Encounter PRIMARY CARE/MEDICINE IHE Encounter Template Text not used by [place] Plan of Treatment: Future Appointments (+ 6 months) and Future Tests (+/- 45 days) The Plan of Treatment section includes future care activities for the patient from all [place] treatmentfacilities. This section includes future appointments and future orders which are active, pending or scheduled. Future Appointments This section includes appointments that were scheduled to occur 6 months from the date of the Encounter, up to a maximum of 20 appointments. The data comes from all [place] treatment facilities. Appointment Date/Time Appointment Type Appointme nt Facility Name Nov 06, 2023 02:30 PM AMBULATORY - MEDICINE HUSSEIN RAHMAN [facility] Nov 06, 2023 03:00 PM AMBULATORY - NONE [place] L[place] [facility] Nov 06, 2023 03:15 PM AMBULATORY - NONE [place] [facility] Dec 07, 2023 07:45 PM AMBULATORY - NONE [place] [facility] Feb 02, 2024 03:00 PM AMBULATORY - SURGERY [place] LEONLIS [facility] Social History: Smoking Status (Most current) and Tobacco Use (All prior to encounter date) This section includes the most current, and the historical, smoking and tobacco- related health factors from the [place] facility where the Encounter took place. Current Smoking Status This section includes the most current smoking, or tobacco-related health factor, from the [place] facility where the Encounter took place. Date/Time Current Smoking Status Comment Samanta portillo Jul 23, 2023 02:00 PM VA-TOBACCO NEVER USED [facility] Tobacco Use History This section includes a history of the smoking, or tobacco-related health factors, that were collected on or before the date of the Encounter. The data comes from the [place] facility where the Encounter took place. Date/Time Smoking Status/Tobacco Use Comment F acility Jul 16, 2022 10:00 AM VA-TOBACCO DOESNT USE WI 30 MIN WAKEUP [facility] Jul 16, 2022 10:00 AM VA-TOBACCO USE 1 TO < 5 YEARS [facility] Jul 16, 2022 10:00 AM VA-TOBACCO USE ADVICE [facility] Jul 16, 2022 10:00 AM VA-TOBACCO USE WOOD CARVER NO [facility] Jul 16, 2022 10:00 AM VA-TOBACCO USE MED NO [facility] Jul 16, 2022 10:00 AM VA-TOBACCO USER SOME DAYS [facility] Jul 20, 2020 03:30 PM VA-TOBACCO DOESNT USE WI 30 MIN WAKEUP [facility] Jul 20, 2020 03:30 PM VA-TOBACCO USE 5 TO 15 YEARS [facility] Jul 20, 2020 03:30 PM VA-TOBACCO USE ADVICE [facility] Jul 20, 2020 03:30 PM VA-TOBACCO USE WOOD CARVER NO [facility] Jul 20, 2020 03:30 PM VA-TOBACCO USE MED NO [facility] Jul 20, 2020 03:30 PM VA-TOBACCO USER SOME DAYS [facility] Jan 07, 2019 03:22 PM VA-TOBACCO NEVER USED [facility] Dec 18, 2016 01:05 PM LIFETIME NON-TOBACCO USER [facility] Radiology Reports: +/- 30 days of [...] the Encounter. The data comes from all [place] treatment facilities. Date/Time Radiology Report Provider Source Nov 06, 2023 02:57 PM KNEE RIGHT 3 VIEWS : DAVID COPELAND [id number] -1975 M Exm Date: NOV 06, 2023@14:57 Req Phys: SUDHIR BOWSER Loc: [facility] PACT ROVER 4F (Req'g Loc) Img Loc: MAIN X-RAY Service: [place] [address] (Case [id number] COMPLETE) KNEE RIGHT 3 VIEWS (RAD Detailed) CPT:47430 Proc Modifiers : STANDING RIGHT Reason for Study: persisting medial right knee pain Clinical History: persisting medial right knee pain Responsible provider name and phone number to notify for critical findings if other than user placing the order and pager listed below: User placing orders pager: [phone] LAST CREATININE 1.0 (07/23/23) Report Status: Verified Date Reported: NOV 06, 2023 Date Verified: NOV 06, 2023 Marketing Project Lead E-Sig:/ES/KEITH SALAZAR MD Report: EXAMINATION: KNEE RIGHT 3 VIEWS, 11/06/2023 2:57 PM COMPARISON: None HISTORY: Reason for Study: persisting medial right knee pain persisting medial right knee pain Responsible provider name and phone number to notify for critical findings if other than user placing the order and pager listed below: User placing orders pager: [phone] LAST CREATININE 1.0 (07/23/23) Impression: Slight/early narrowing of the medial compartment joint space. Lateral and patellofemoral compartment joint spaces appear maintained. No acute fracture or dislocation is identified. Trace amount of suprapatellar joint fluid. Fabella, anatomic variant. Primary Interpreting Staff: KEITH SALAZAR MD, RADIOLOGIST (Marketing Project Lead) /JRT KEITH SALAZAR [facility] Encounter Notes: All associated encounter notes This section contains the clinical notes associated to the Encounter. Date/Time Encounter Note(s) Provider Source Oct 20, 2023 02:13 PM REPORT OF CONTACT: LOCAL TITLE: PATIENT CONTACT NOTE STANDARD TITLE: REPORT OF CONTACT DATE OF NOTE: OCT 20, 2023@14:13 ENTRY DATE: OCT 20, 2023@14:13:57 AUTHOR: CHICO MADISON EXP COSIGNER: URGENCY: STATUS: COMPLETED PATIENT CONTACT NOTE Has ADDENDA Patient contact Name of : DAVID COPELAND Name/Relationship of Contact if other than [place]: Date & Time of Contact: Oct@14:14 Type of Contact: VAOS Reason for Contact: station id: [id number] preferred modality: FACE TO FACE phone number: [phone] email: [email or web address] preferred dates:10/27/2023 AM,10/27/2023 PM reason code:MEDICALISSUE comments:Inner right knee pain. /justin/ CHICO MADISON AMSA Signed: 10/20/2023 14:14 Receipt Acknowledged By: 10/20/2023 14:32 /justin/ STEFANIA SAWYER RN RN Pact Curator Herbarium 10/20/2023 ADDENDUM STATUS: COMPLETED Reviewed chart noting attempts have been made to schedule clinic appointment without success. Assigned Provider without clinic availability 11/15. Entered rtc clinic appointment request with Yoel. /justin/ STEFANIA SAWYER RN RN Pact Curator Herbarium Signed: 10/20/2023 14:35 CHICO MADISON [facility]
--- OUTSIDE RECORDS SUMMARY | 2023-12-27 00:58 | XMS_ITS | Encounter Summary ---
Author Name [facility] [place] [facility] [place] Address [address] [place] [address] Care Team Providers Care Director Of Rehabilitation Name Role Phone ADRIAN MCGILL Primary Care [...] Name Patient's Relationship to Policy Mercer BCBS [facility] (WNR) MEDICAID MEDIC AID (WNR) May 21, 2010 [id number] [phone] LUCY COPELAND PATIENT Selected Encounter This section includes the information on record at [place] for the Encounter. Date/Time Encounter Type Encounter Description Reason Pro vider Source Oct 05, 2023 03:18 PM Outpatient Encounter PRIMARY CARE/MEDICINE IHE Encounter Template Text not used by [place] Plan of Treatment: Future Appointments (+ 6 months) and Future Tests (+/- 45 days) The Plan of Treatment section includes future care activities for the patient from all [place] treatmentfacilities. This section includes future appointments and future orders which are active, pending or scheduled. Future Appointments This section includes appointments that were scheduled to occur 6 months from the date of the Encounter, up to a maximum of 20 appointments. The data comes from all [place] treatment facilities. Appointment Date/Time Appointment Type Appointme nt Facility Name Nov 06, 2023 02:30 PM AMBULATORY - MEDICINE HUSSEIN RAHMAN [facility] Nov 06, 2023 03:00 PM AMBULATORY - NONE [place] [facility] Nov 06, 2023 03:15 PM AMBULATORY - NONE [place] [facility] Dec 07, 2023 07:45 PM AMBULATORY - NONE [place] [facility] Feb 02, 2024 03:00 PM AMBULATORY - SURGERY KARYN LEONLIS [facility] Social History: Smoking Status (Most current) and Tobacco Use (All prior to encounter date) This section includes the most current, and the historical, smoking and tobacco- related health factors from the [place] facility where the Encounter took place. Current Smoking Status This section includes the most current smoking, or tobacco-related health factor, from the [place] facility where the Encounter took place. Date/Time Current Smoking Status Comment Samanta portillo Jul 23, 2023 02:00 PM VA-TOBACCO NEVER USED [facility] Tobacco Use History This section includes a history of the smoking, or tobacco-related health factors, that were collected on or before the date of the Encounter. The data comes from the [place] facility where the Encounter took place. Date/Time Smoking Status/Tobacco Use Comment F acility Jul 16, 2022 10:00 AM VA-TOBACCO DOESNT USE WI 30 MIN WAKEUP [facility] Jul 16, 2022 10:00 AM VA-TOBACCO USE 1 TO < 5 YEARS [facility] Jul 16, 2022 10:00 AM VA-TOBACCO USE ADVICE [facility] Jul 16, 2022 10:00 AM VA-TOBACCO USE BODY PRESS OPERATOR NO [facility] Jul 16, 2022 10:00 AM VA-TOBACCO USE MED NO [facility] Jul 16, 2022 10:00 AM VA-TOBACCO USER SOME DAYS [facility] Jul 20, 2020 03:30 PM VA-TOBACCO DOESNT USE WI 30 MIN WAKEUP [facility] Jul 20, 2020 03:30 PM VA-TOBACCO USE 5 TO 15 YEARS [facility] Jul 20, 2020 03:30 PM VA-TOBACCO USE ADVICE [facility] Jul 20, 2020 03:30 PM VA-TOBACCO USE BODY PRESS OPERATOR NO [facility] Jul 20, 2020 03:30 PM VA-TOBACCO USE MED NO [facility] Jul 20, 2020 03:30 PM VA-TOBACCO USER SOME DAYS [facility] Jan 07, 2019 03:22 PM VA-TOBACCO NEVER USED [facility] Dec 18, 2016 01:05 PM LIFETIME NON-TOBACCO USER [facility] Encounter Notes: All associated encounter notes This section contains the clinical notes associated to the Encounter. Date/Time Encounter Note(s) Provider Source Oct 05, 2023 03:18 PM REPORT OF CONTACT: LOCAL TITLE: PATIENT CONTACT NOTE STANDARD TITLE: REPORT OF CONTACT DATE OF NOTE: OCT 05, 2023@15:18 ENTRY DATE: OCT 05, 2023@15:18:31 AUTHOR: MIKE BARRIOS EXP COSIGNER: URGENCY: STATUS: COMPLETED PATIENT CONTACT NOTE Has ADDENDA Patient contact Name of : DAVID COPELAND Name/Relationship of Contact if other than : Date & Time of Contact: Sep@15:18 Type of Contact: Other [facility] Reason for Contact: patient left message in VAOS reason code:MEDICALISSUE comments:Pain on inside of right knee. thank you /justin/ MIKE BARRIOS LEAD IVF EMBRYOLOGIST Signed: 10/05/2023 15:19 Receipt Acknowledged By: 10/06/2023 11:34 /justin/ STEFANIA SAWYER RN RN Pact Cashier Greeter 10/06/2023 ADDENDUM STATUS: COMPLETED Attempted to reach , , without success. Left voicemail message recommending Jay contact Call Center, , to schedule clinic appointment prn. /justin/ STEFANIA SAWYER RN RN Pact Cashier Greeter Signed: 10/06/2023 11:40 MIKE BARRIOS [facility]
--- OUTSIDE RECORDS SUMMARY | 2023-12-27 00:58 | XMS_ITS | Encounter Summary ---
Author Name [facility] [place] [facility] [place] [facility] [place] Address [address] [place] [address] Care Team Providers Care Electrical Transmission Engineer Name Role Phone ADRIAN MCGILL Primary Care [...] Patient's Relationship to Policy Mercer BCBS [facility] (WNR) MEDICAID MEDIC AID (WNR) May 21, 2010 [id number] LUCY COPELAND PATIENT Selected Encounter This section includes the information on record at [place] for the Encounter. Date/Time Encounter Type Encounter Description Reason Provider Source Nov 06, 2023 03:15 PM ORTHOTIC MGMT&TRAING 1ST ENC PROSTHETICS/ORTHOT ICS ICD-10-CM M25.561 Pain in right knee JAMES MARCUS E Encounter Template Text not used by [place] Assessments - Encounter Diagnoses This section includes the primary and secondary diagnoses documented for the Encounter. Date/Time Primary/Secondary Diagnosis Diagnosis Name Provider Source Nov 06, 2023 04:22 PM PRIMARY Pain in right knee JAMES MARCUS [facility] Plan of Treatment: Future Appointments (+ 6 months) and Future Tests (+/- 45 days) The Plan of Treatment section includes [facility] [place] [facility] This section includes future appointments and future [...] 2023 07:45 PM [facility] Feb 02, 2024 03:00 PM AMBULATORY - SURGERY [facility] JAVON [facility] Active, Pending, and Scheduled Orders This section includes a listing of several types of active, pending, and scheduled orders, including clinic medications orders, diagnostic test orders, procedure orders and consult orders; where the start date of the order is 45 days before the date of the Encounter or 45 days after the date of theEncounter. The data comes from all [place] treatment facilities. Test Date/Time Test Type Test Details Facility Name Dec 08, 2023 03:54 PM Consult Order ORTHOPEDIC S OUTPT-HIP/KNEE Cons Fishery Biologist's Choice [facility] Vital Signs: All taken on the encounter date This section contains inpatient and outpatient Vital Signs collected on the date of the Encounter. Date/Time Temperature Pulse Blood Pressure Respiratory Rate SP02 Pain Height Weight Body Mass Index Source Nov 06, 2023 02:32 PM 97.9 54 117/76 16 98 2 182.6 27 [facility] Social History: Smoking Status (Most current) [...] Samanta portillo Jul 23, 2023 02:00 PM NH-TOBACCO NEVER USED [facility] Tobacco Use History This section includes a history of the smoking, or tobacco-related health factors, that were collected on or before the date of the Encounter. The data comes from the [place] facility where the Encounter took place. Date/Time Smoking Status/Tobacco Use Comment F acility Jul 16, 2022 10:00 AM NH-TOBACCO DOESNT USE WI 30 MIN WAKEUP [facility] Jul 16, 2022 10:00 AM VA-TOBACCO USE 1 TO < 5 YEARS [facility] Jul 16, 2022 10:00 AM VA-TOBACCO USE ADVICE [facility] Jul 16, 2022 10:00 AM VA-TOBACCO USE FUR SEWER NO [facility] Jul 16, 2022 10:00 AM VA-TOBACCO USE MED NO [facility] Jul 16, 2022 10:00 AM VA-TOBACCO USER SOME DAYS [facility] Jul 20, 2020 03:30 PM VA-TOBACCO DOESNT USE WI 30 MIN WAKEUP [facility] Jul 20, 2020 03:30 PM VA-TOBACCO USE 5 TO 15 YEARS [facility] Jul 20, 2020 03:30 PM VA-TOBACCO USE ADVICE [facility] Jul 20, 2020 03:30 PM VA-TOBACCO USE FUR SEWER NO [facility] Jul 20, 2020 03:30 PM VA-TOBACCO USE MED NO [facility] Jul 20, 2020 03:30 PM VA-TOBACCO USER SOME DAYS [facility] Jan 07, 2019 03:22 PM VA-TOBACCO NEVER USED [facility] Dec 18, 2016 01:05 PM LIFETIME NON-TOBACCO USER [facility] Radiology Reports: +/- 30 days of [...] the Encounter. The data comes from all [facility] facilities. Date/Time Radiology Report Provider Source Nov 06, 2023 02:57 PM KNEE RIGHT 3 VIEWS : DAVID COPELAND [id number] -1975 [facility] Date: NOV 06, 2023@14:57 Req Phys: SUDHIR BOWSER Pat Loc: [facility] PACT ROVER 4F (Req'g Loc) Img Loc: MAIN X-RAY Service: [place] [address] (Case [id number] COMPLETE) KNEE RIGHT 3 VIEWS (RAD Detailed) CPT:02014 Proc Modifiers : STANDING RIGHT Reason for Study: persisting medial right knee pain Clinical History: persisting medial right knee pain Responsible provider name and phone number to notify for critical findings if other than user placing the order and pager listed below: User placing orders pager: [phone] LAST CREATININE 1.0 (07/23/23) Report Status: Verified Date Reported: NOV 06, 2023 Date Verified: NOV 06, 2023 Floor Coverings Salesperson E-Sig:/ES/KEITH SALAZAR MD Report: EXAMINATION: KNEE RIGHT 3 VIEWS, 11/06/2023 2:57 PM COMPARISON: None HISTORY: Reason for Study: persisting medial right knee pain persisting medial right knee pain Responsible provider name and phone number to notify for critical findings if other than user placing the order and pager listed below: User placing orders pager: [phone] LAST CREATININE 1.0 (07/23/23) Impression: Slight/early narrowing of the medial compartment joint space. Lateral and patellofemoral compartment joint spaces appear maintained. No acute fracture or dislocation is identified. Trace amount of suprapatellar joint fluid. Fabella, anatomic variant. Primary Interpreting Staff: KEITH SALAZAR MD, RADIOLOGIST (Floor Coverings Salesperson) /JRT KEITH SALAZAR [facility] Encounter Notes: All associated encounter notes This section contains the clinical notes associated to the Encounter. Date/Time Encounter Note(s) Provider Source Nov 06, 2023 04:17 PM ORTHOTICS PROSTHET ICS CONSULT: LOCAL TITLE: PROSTHETICS CONSULT STANDARD TITLE: ORTHOTICS PROSTHETICS CONSULT DATE OF NOTE: NOV 06, 2023@16:17 ENTRY DATE: NOV 06, 2023@16:17:51 AUTHOR: JAMES MARCUS EXP COSIGNER: URGENCY: STATUS: COMPLETED Provisional Diagnosis: Pain in right Knee(ICD-10-CM M25.561) Reason For Request: medial offloading knee brace ASSESSMENT: Sewell presented in clinic with orders to receive knee brace. The was evaluated measured and fit. explained pain as being muscle and tendon type pain. The was then fitted with compression with stays to allow pressure on the affected area and offload pressure going through any tendons and ligaments effected allowing for the brace to work with vet. Side :Right Thigh:18 1/4 Knee Center:16 1 Calf:16 1 Size: Medium EDUCATION: Education was provided to patient during this encounter. Patient indicated readiness to learn about educational information re: the following topics: donning/doffing, wash/care instructions, how to report a concern. Patient indicates readiness to learn, verbalizes understanding, agreement and satisfaction with the treatment plan. Denies further questions. If necessary, patient to be rescheduled upon receipt or completed fabrication of ordered item(s)/device(s). Fit and issued from stock: QTY:1 [id number] KNEE WRAP HINGE OPN [id number] /justin/ JAMES MARCUS Health Post Framer (Manager Metal) Signed: 11/06/2023 16:22 Receipt Acknowledged By: 11/11/2023 11:13 /justin/ RACHEL MARTI MICROBIOLOGY LAB TECHNICIAN JAMES MARCUS [facility]
--- OUTSIDE RECORDS SUMMARY | 2023-12-27 00:58 | XMS_ITS | Encounter Summary ---
Author Name [facility] Address [address] [place] [address] Care Team Providers Care Expressive Art Therapist Name Role Phone ADRIAN CERVANTES Primary Care [...] Name Patient's Relationship to Policy [facility] [employer] [facility] (WNR) MEDICAID MEDIC AID (WNR) May 21, 2010 [id number] [phone] LUCY COPELAND PATIENT Selected Encounter This section includes the information on record at [facility] for the Encounter. 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 The data comes from all [facility]. Appointment Date/Time Appointment Type Appointme nt Facility Name Nov 06, 2023 02:30 PM AMBULATORY - MEDICINE [facility] Nov 06, 2023 03:00 PM AMBULATORY - NONE [facility] Nov 06, 2023 03:15 PM AMBULATORY - NONE [facility] Dec 07, 2023 07:45 PM AMBULATORY - NONE [facility] Active, Pending, and Scheduled Orders This section includes a listing of several types of active, pending, and scheduled orders, including clinic medications orders, diagnostic test orders, procedure orders and consult orders; where the start date of the order is 45 days before the date of the Encounter or 45 days after the date of theEncounter. The data comes from all [facility]. Test Date/Time Test Type Test Details Facility Name Jul 23, 2023 12:00 AM Laboratory - Chemi stry Order OCCULT BLOOD FIT X1 SCREEN STOOL FECES SP ONCE [facility] Lab Results: +/- 30 days of the encounter This section includes the Chemistry and Hematology Lab Results on record with [facility] for the patient. Radiology Reports and Pathology Reports are provided separately, in subsequent sections. Lab Results This section contains the Chemistry/Hematology Results that were resulted 30 days before or 30 daysafter the date of the Encounter. Date/Time Source Result Type Result - Unit Interpretation Reference Range Comment Jul 23, 2023 12:52 PM [facility] BASIC METABOLIC PANEL+MG Specimen Type: PLASMA No comment entered. Ordering Provider: LANDEN CERVANTES Report Released Date/Time: Jul 16, 2022 10:55 AM Reporting Lab: [facility] [id number] Performing Lab: [facility] [id number] CREATININE 1.0 mg/dL 0.7-1.2 UREA NITROGEN 13 mg/dL 8-26 GLUCOSE 116 mg/dL H 70-100 SODIUM 141 mmol/L 136-145 POTASSIUM 3.8 mmol/L 3.5-5.1 CHLORIDE 107 mmol/L 98-107 CO2 27 mmol/L 22-29 CALCIUM 9.4 mg/dL 8.4-10.2 MAGNESIUM 2.2 mg/dL 1.6-2.6 ANION GAP 7 mmol/L 5-15 .CREAT EGFR(CKD-EPI) >90 >60 Jul 23, 2023 12:52 PM [facility] LIPID PANEL,NON-FASTING Specimen Type: PLASMA No comment entered. Ordering Provider: LANDEN CERVANTES Report Released Date/Time: Jul 16, 2022 10:55 AM Reporting Lab: [facility] [id number] Performing Lab: [facility] [id number] CHOLESTEROL 167 mg/dL <199 .HDL 36 mg/dL L >40 LDL CALCULATION 108 mg/dL H <99 VLDL CALCULATION 23 mg/dL <29 NON HDL CHOLESTEROL 131 mg/dL H <129 TRIG(NON FASTING) 113 mg/dL <149 Vital Signs: All taken on the encounter date This section contains inpatient and outpatient Vital Signs collected on the date of the Encounter. Date/Time Temperature Pulse Blood Pressure Respiratory Rate SP02 Pain Height Weight Body Mass Index Source Jul 23, 2023 01:14 PM 97.9 55 118/77 18 98 0 69.5 186 27 [facility] Immunizations: All administered on the encounter date This section contains immunizations associated to the Encounter. Immunization Series Date Issued Reaction Comments TDAP Jul 23, 2023 INFLUENZA, INJECTABLE, QUADR IVALENT, PRESERVATIVE FREE Jul 23, 2023 Social History: Smoking Status (Most current) and [...] 23, 2023 02:00 PM VA-TOBACCO NEVER USED [facility] Tobacco Use [...] Jul 16, 2022 10:00 AM VA-TOBACCO USE BENCH CARPENTER NO [facility] Jul 16, 2022 [...] Jul 20, 2020 03:30 PM VA-TOBACCO USE BENCH CARPENTER NO [facility] Jul 20, 2020 03:30 PM VA-TOBACCO USE MED NO [facility] Jul 20, 2020 03:30 PM VA-TOBACCO USER SOME DAYS [facility] Jan 07, 2019 03:22 PM VA-TOBACCO NEVER USED [facility] Dec 18, 2016 01:05 PM LIFETIME NON-TOBACCO USER [facility] Encounter Notes: All associated encounter notes This section contains the clinical notes associated to the Encounter. Date/Time Encounter Note(s) Provider Source Jul 23, 2023 01:44 PM INTERNAL MEDICINE NOTE: LOCAL TITLE: MEDICINE CLINIC NOTE STANDARD TITLE: INTERNAL MEDICINE NOTE DATE OF NOTE: JUL 23, 2023@13:44 ENTRY DATE: JUL 23, 2023@13:44:03 AUTHOR: ADRIAN CERVANTES EXP COSIGNER: URGENCY: STATUS: COMPLETED SUBJECTIVE: pt here for rhm. uneventful year healthwise and ~no concerns today. overall feeling well. appetite is fine. smokoes a pipe (tobacco) ocasionally. couple drinks a week. ros -gen: feeling well/rested overall -heent: wnl, no vision/hearing concerns -resp: wnl -cv: stamina is good/commensurate with conidioign. -gi: wnl...some gerd if eats late. -msk: no concerns. -integ: still some sort of non-healing pimple on right shoulder sometimes drains. -gu: ~<1 nocturia, ~no daytime luts. Active Outpatient Medications (excluding Supplies): Non-VA Medications Status 1) Non-VA IBUPROFEN 600MG TAB 600MG MOUTH THREE TIMES A ACTIVE DAY NEEDED Objective: BLOOD PRESSURE: High: 118/77 (JUL 23, 2023@13:14:16) Low: 118/77 (JUL 23, 2023@:14:16) HEIGHT: High: 69.5 (JUL 23, 2023@:14:16) Low: 69.5 (JUL 23, 2023@:14:16) PAIN: High: 0 Low: 0 (JUL 23, 2023@:14:16) PULSE: High: 55 (JUL 23, 2023@:14:16) Low: 55 (JUL 23, 2023@:14:16) RESPIRATION: High: 18 (JUL 23, 2023@:14:16) Low: 18 (JUL 23, 2023@:14:16) TEMPERATURE: High: 97.9 (JUL 23, 2023@:14:16) Low: 97.9 (JUL 23, 2023@:14:16) WEIGHT: High: 186 (JUL 23, 2023@:14:16) Low: 186 (JUL 23, 2023@:14:16) -General: no acute distress, healthy appearing male -HEENT: supple, no masses -Resp: clear to auscultation throughout -CV: regular rate and rhythm, no rubs, murmurs or gallops, no edema -Abd: soft, non-tender, non-distended, no masses, normal bowel sounds -integ: small keloid at lipoma excission site in irhgt mid-axllary line.: there is a slightly raised, soft, well demarcated red lsion (~2 mm) on right shoudler. GLUCOSE: 116 H UREA NITROGEN: 13 CREATININE: 1.0 SODIUM: 141 POTASSIUM: 3.8 CHLORIDE: 107 CO2: 27 CALCIUM: 9.4 CHOLESTEROL: 167 MAGNESIUM: 2.2 HDL: 36 L ANION GAP: 7 LDL CHOL: 108 H VLDL CHOL: 23 NON HDL CHOLESTEROL: 131 H TRIG(NON FASTING): 113 CREATININE EGFR (CKD-EPI): >90 Assessment/Plan -keloid at site of lipoma excission. -gee angiomas right shoudler: remove as has tendency to bleed. -ongong, intermittent left sided ulnar neruopathy sx: reviewed avoidance of putting pressure on this, s/p repair ~2019 -1 year All the above issues, labs and imaging studies were discussed and Patient indicated readiness to learn, verbalized understanding, agreement and satisfaction with the treatment plan. All patient concerns and questions were addressed by the end of the visit. MEDICATION RECONCILIATION: () I have reviewed the medication list with the patient/surrogate and no changes are indicated. (X) I have reviewed the medication list with the patient/surrogate and have made the appropriate changes to the [facility] medication list. Avg Risk Colorectal Cancer Screen: AVERAGE RISK colorectal cancer screening is due based on information available to this clinical reminder FOBT/FIT (Fecal Immunochemical Testing) has been ordered. See order tab for details. /justin/ Natalia Cervantes MD STAFF PHYSICIAN Signed: 07/23/2023 14:03 ADRIAN CERVANTES [facility] Jul 23, 2023 01:15 PM INTERNAL MEDICINE OUTPATIENT NOTE: LOCAL TITLE: MEDICINE CLINIC NURSING NOTE STANDARD TITLE: INTERNAL MEDICINE OUTPATIENT NOTE DATE OF NOTE: JUL 23, 2023@13:15 ENTRY DATE: JUL 23, 2023@13:16 AUTHOR: ROSE ALBA EXP COSIGNER: URGENCY: STATUS: COMPLETED MEDICINE CLINIC NURSING NOTE Has ADDENDA TYPE OF VISIT: Appointment Check In Type of appointment: In-person appointment REASON FOR VISIT: Routine check up ALLERGIES: CONTRAST MEDIA (Dec 18, 2016) VITAL SIGNS: Blood Pressure: 118/77 (07/23/2023 13:14) Pulse: 55 (07/23/2023 13:14) Respiration: 18 (07/23/2023 13:14) Temperature: 97.9 F [36.6 C] (07/23/2023 13:14) Weight: 186 lb [84.37 kg] (07/23/2023 13:14) Height: 69.5 in [176.5 cm] (07/23/2023 13:14) BMI: 27.1 O2 Sat: 98% (07/23/2023 13:14) Pain: 0 (07/23/2023 13:14) PAIN SCREEN: Patient is not having significant pain that they wish to discuss with their provider today. MEDICATION Over the Counter/Herbal Medications: The patient states that they take some outside medications and/or herbals. Homelessness/Food Insecurity Screen: In the past 2 months, have you been living in stable housing that you own, rent, or stay in as part of a household? Yes - Living in stable housing. Are you worried or concerned that in the next 2 months you may NOT have stable housing that you own, rent, or stay in as part of a household? No - Not worried about housing near future The [place] reports the following: Within the past 12 months, you worried whether your food would run out before you got money to buy more. Never true Within the past 12 months, the food you bought just didn't last and you didn't have money to get more. Never true Food Assistance Programs [facility] Food Assistance Programs [facility] Tobacco Use Screening: The patient has never used tobacco. Alcohol Use Screen (AUDIT-C): Alcohol Screen: SCREEN FOR ALCOHOL (AUDIT-C) An alcohol screening test (AUDIT-C) was negative (score=1). 1. How often did you have a drink containing alcohol in the past year? Consider a drink to be a 12 ounce can or bottle of regular beer, 8 ounces of malt liquor, a 5 ounce glass of table wine, or a 1.5 ounce shot of liquor (like scotch, gin, or vodka). Monthly or less 2. How many drinks containing alcohol did you have on a typical day when you were drinking in the past year? One or two drinks 3. How often did you have six or more drinks on one occasion in the past year? Never Depression Screening: Perform PHQ-2 A PHQ-2 screen was performed. The score was 0 which is a negative screen for depression. Over the past two weeks, how often have you been bothered by the following problems? 1. Little interest or pleasure in doing things Not at all 2. Feeling down, depressed, or hopeless Not at all Suicide Screen: C-SSRS Screening [place] Suicide Severity Rating Scale (C-SSRS) screener 1. Over the past month, have you wished you were or wished you could go to sleep and not wake up? No 2. Over the past month, have you had any actual thoughts of killing yourself? No 3. Over the past month, have you been thinking about how you might do this? Response not required due to responses to other questions. 4. Over the past month, have you had these thoughts and had some intention of acting on them? Response not required due to responses to other questions. 5. Over the past month, have you started to work out or worked out the details of how to kill yourself? Response not required due to responses to other questions. 6. If yes, at any time in the past month did you intend to carry out this plan? Response not required due to responses to other questions. 7. In your lifetime, have you ever done anything, started to do anything, or prepared to do anything to end your life (for example, collected pills, obtained a gun, gave away valuables, went to the roof but didn't jump)? No 8. If YES, was this within the past 3 months? Response not required due to responses to other questions. COVID-19 Immunization: Refused Pfizer Monovalent COVID-19 vaccine Immunization: COVID-19 ([employer]), MRNA, LNP-S, PF, ANA ROSA-SUCROSE, 30 MCG/0.3 ML (AGES 12+ YEARS) Refusal Reason: PATIENT DECISION Patient refuses all immunization(s) in the COVID-19 group Date Documented: 07/23/23 13:18 Influenza Immunization: The patient was given the influenza VIS which lists the benefits and side effects of the vaccine and which reviews the risks of not receiving the flu vaccine. The VIS was reviewed with the patient and they were given an opportunity to ask questions. The patient was provided education on how to decrease the risk of influenza infection including social distancing and use of good hand hygiene. The patient denied any prior severe reaction to the flu vaccine or its components. The patient gave verbal consent to receive the vaccine. Influenza, Quadrivalent preservative free (Fluzone - syringe) Administered: INFLUENZA, INJECTABLE, QUADRIVALENT, PRESERVATIVE FREE Date Administered: Jul 23, 2023 13:18 Design Checker: SANOFI PASTEUR Lot: [id number] Exp Date: Oct 18, 2023 ND: [id number] Admin Route/Site: INTRAMUSCULAR/LEFT DELTOID Dosage: 0.5mL Vaccine Information Statement(s): INFLUENZA(FLU) VACC(INACTIVATED OR RECOMBINANT)VIS Nov 23, 2020 (GUAMANIAN) Order By: Policy Administered By: Rose Alba Td / Tdap Immunization: Administered: TDAP Date Administered: Jul 23, 2023 13:23 Design Checker: SecondLeapINE Lot: [id number] Exp Date: August 25, 2025 NDC: [id number] Admin Route/Site: INTRAMUSCULAR/LEFT DELTOID Dosage: 0.5mL Vaccine Information Statement(s): TDAP (TETANUS, DIPHTHERIA, PERTUSSIS) VACCINE VIS Nov 23, 2020 (GUAMANIAN) Order By: Policy Administered By: Rose Alba Vaccine Information Sheet (VIS) was given to the patient/caregiver, education regarding adverse reactions was discussed, as well as barriers to learning, if any, were acknowledged. /justin/ ROSE HughesP.N NIGHT NURSE Signed: 07/23/2023 13:23 07/23/2023 ADDENDUM STATUS: COMPLETED Nursing Annual Screening: Fall History Screen During the past 12 months, have you had any falls? Patient reports having one fall without injury requiring treatment. MEDICATIONS: Patient does not have an active prescription for one of the following medications: Antihypertensives, Antidepressants, Antipsychotics, Diuretics, or Opioid Analgesics (Contolled Substance medications used for pain). Script Talk Screen Are you able to read your prescription bottles with your glasses, magnifiers or other aids? Yes or patient not taking any prescriptions. Skin Screen Patient reports any current pressure ulcers, a history of pressure ulcers, or a wound from a phlebotomist medical lab assistant or Patient is bed-confined or a wheelchair-user or Patient requires assistance to transfer/change position No, Skin Screen is Negative Home Abuse/Violence Screen Is your home free of abuse and violence? Yes [facility] Program Screen Body Mass Index (BMI)= 27.1 [employer]: Collection DT Specimen Test Name Result Units Ref Range 07/16/2022 09:00 BLOOD !! HEMOGLOBIN A1C 5.1 % 4.0 - 6.0 !! Indicates COMMENTS AVAILABLE...Refer to Interim Lab Report. Byron Minor Hgb A1C: No data available [place] Hgb A1C: No data available Point of Care Hgb A1C: POC HGB A1C____ [facility] Weight [facility] brochure given to and discussed. The counseling includes discussion of the health effects of being overweight/obese, description of the [facility] treatment program and contact number for [facility] Program. no No Outpatient Nutrition Screen Body Mass Index (BMI)= 27.1 [employer]: Collection DT Specimen Test Name Result Units Ref Range 07/16/2022 09:00 BLOOD !! HEMOGLOBIN A1C 5.1 % 4.0 - 6.0 !! Indicates COMMENTS AVAILABLE...Refer to Interim Lab Report. Byron Minor Hgb A1C: No data available [place] Hgb A1C: No data available Point of Care Hgb A1C: POC HGB A1C____ Is patient's BMI less than 18.5? No Does patient have swallowing, coughing, or chewing problems affecting oral intake? No Has patient experienced unplanned weight loss or gain greater than 10 pounds over the last 2 months? No Is patient's Hgb A1C (Glycosylated Hemoglobin) greater than 9.5? No Is patient receiving Total Parenteral Nutrition (TPN) or Tube Feedings? No Patient Health Education Screen BARRIERS/SPECIAL NEEDS: No barriers identified PREFERRED STYLE OF LEARNING: No preference stated Client Assistive Service (JUSTIN) Screen Does the patient require assistance with outpatient visit? No /justin/ ROSE ALBA L.P.N NIGHT NURSE Signed: 07/23/2023 13:29 07/23/2023 ADDENDUM STATUS: COMPLETED EDUCATION: BARRIERS/SPECIAL NEEDS: No barriers identified PREFERRED STYLE OF LEARNING: No preference state PARTICIPANT(s): Patient Stool sample card provided Printed instructions provided and patient/family able to repeat these instructions accurately. /justin/ ROSE ALBA L.P.N NIGHT NURSE Signed: 07/23/2023 14:27 ROSE ALBA [facility]
--- OUTSIDE RECORDS SUMMARY | 2023-12-27 00:58 | XMS_ITS | Encounter Summary ---
Author Name [facility] [place] Organization [facility] [place] [place] [facility] [place] Address [address] [place] [address] Care Team Providers Care Stone Trimmer Name Role Phone ADRIAN MCGILL Primary Care [...] Name Patient's Relationship to Policy Mercer BCBS [facility] (WNR) MEDICAID MEDIC AID (WNR) May 21, 2010 [id number] [phone] LUCY COPELAND PATIENT Selected Encounter This section includes the information on record at [place] for the Encounter. Date/Time Encounter Type Encounter Description Reason Provider Source Oct 08, 2023 04:40 PM Outpatient Encounter TELEPHONE TRIAGE FILIPE SÁNCHEZ Benito Encounter Template Text not used by [place] Plan of Treatment: Future Appointments (+ 6 months) and Future Tests (+/- 45 days) The Plan of Treatment section includes future care activities for the patient from all [place] treatmentfacilities. This section includes future appointments and future orders which are active, pending or scheduled. Future Appointments This section includes appointments that were scheduled to occur 6 months from the date of the Encounter, up to a maximum of 20 appointments. The data comes from all [place] treatment facilities. Appointment Date/Time Appointment Type Appointme nt Facility Name Nov 06, 2023 02:30 PM AMBULATORY - MEDICINE HUSSEIN RAHMAN [facility] Nov 06, 2023 03:00 PM AMBULATORY - NONE [place] [facility] Nov 06, 2023 03:15 PM AMBULATORY - NONE [place] [facility] Dec 07, 2023 07:45 PM AMBULATORY - NONE [place] [facility] Feb 02, 2024 03:00 PM AMBULATORY - SURGERY KARYN LEONLIS [facility] Social History: Smoking Status (Most current) and Tobacco Use (All prior to encounter date) This section includes the most current, and the historical, smoking and tobacco- related health factors from the [place] facility where the Encounter took place. Current Smoking Status This section includes the most current smoking, or tobacco-related health factor, from the [place] facility where the Encounter took place. Date/Time Current Smoking Status Comment Samanta portillo Jul 23, 2023 02:00 PM VA-TOBACCO NEVER USED [facility] Tobacco Use History This section includes a history of the smoking, or tobacco-related health factors, that were collected on or before the date of the Encounter. The data comes from the [place] facility where the Encounter took place. Date/Time Smoking Status/Tobacco Use Comment F acility Jul 16, 2022 10:00 AM VA-TOBACCO DOESNT USE WI 30 MIN WAKEUP [facility] Jul 16, 2022 10:00 AM VA-TOBACCO USE 1 TO < 5 YEARS [facility] Jul 16, 2022 10:00 AM VA-TOBACCO USE ADVICE [facility] Jul 16, 2022 10:00 AM VA-TOBACCO USE VENDING MACHINE TECHNICIAN NO [facility] Jul 16, 2022 10:00 AM VA-TOBACCO USE MED NO [facility] Jul 16, 2022 10:00 AM VA-TOBACCO USER SOME DAYS [facility] Jul 20, 2020 03:30 PM VA-TOBACCO DOESNT USE WI 30 MIN WAKEUP [facility] Jul 20, 2020 03:30 PM VA-TOBACCO USE 5 TO 15 YEARS [facility] Jul 20, 2020 03:30 PM VA-TOBACCO USE ADVICE [facility] Jul 20, 2020 03:30 PM VA-TOBACCO USE VENDING MACHINE TECHNICIAN NO [facility] Jul 20, 2020 03:30 PM VA-TOBACCO USE MED NO [facility] Jul 20, 2020 03:30 PM VA-TOBACCO USER SOME DAYS [facility] Jan 07, 2019 03:22 PM VA-TOBACCO NEVER USED [facility] Dec 18, 2016 01:05 PM LIFETIME NON-TOBACCO USER [facility] Radiology Reports: +/- 30 days of the [...] the Encounter. The data comes from all [place] treatment facilities. Date/Time Radiology Report Provider Source Nov 06, 2023 02:57 PM KNEE RIGHT 3 VIEWS : DAVID COPELAND [id number] -1975 M Exm Date: NOV 06, 2023@14:57 Req Phys: SUDHIR BOWSER Loc: [facility] PACT ROVER 4F (Req'g Loc) Img Loc: MAIN X-RAY Service: [place] [address] (Case [id number] COMPLETE) KNEE RIGHT 3 VIEWS (RAD Detailed) CPT:66863 Proc Modifiers : STANDING RIGHT Reason for Study: persisting medial right knee pain Clinical History: persisting medial right knee pain Responsible provider name and phone number to notify for critical findings if other than user placing the order and pager listed below: User placing orders pager: [phone] LAST CREATININE 1.0 (07/23/23) Report Status: Verified Date Reported: NOV 06, 2023 Date Verified: NOV 06, 2023 Cyber Crime Investigator E-Sig:/ES/KEITH SALAZAR MD Report: EXAMINATION: KNEE RIGHT 3 VIEWS, 11/06/2023 2:57 PM COMPARISON: None HISTORY: Reason for Study: persisting medial right knee pain persisting medial right knee pain Responsible provider name and phone number to notify for critical findings if other than user placing the order and pager listed below: User placing orders pager: [phone] LAST CREATININE 1.0 (07/23/23) Impression: Slight/early narrowing of the medial compartment joint space. Lateral and patellofemoral compartment joint spaces appear maintained. No acute fracture or dislocation is identified. Trace amount of suprapatellar joint fluid. Fabella, anatomic variant. Primary Interpreting Staff: KEITH SALAZAR MD, RADIOLOGIST (Cyber Crime Investigator) /JRT KEITH SALAZAR [facility] Encounter Notes: All associated encounter notes This section contains the clinical notes associated to the Encounter. Date/Time Encounter Note(s) Provider Source Oct 08, 2023 04:40 PM RN PROGRESS NOTE: LOCAL TITLE: CCC: CLINICAL TRIAGE STANDARD TITLE: RN PROGRESS NOTE DATE OF NOTE: OCT 08, 2023@16:40:25 ENTRY DATE: OCT 08, 2023@16:40:25 AUTHOR: FILIPE SÁNCHEZ EXP COSIGNER: URGENCY: STATUS: COMPLETED Patient Demographics Patient Name: DAVID COPELAND Patient Primary Address: [address] [place] [address] Patient Primary Phone: [phone] Patient : 1975 Patient Age: 48 Caller/Recipient Relation to Patient: Self Emergency Contact: HALEY COPELAND Triage Summary Conducted triage/discussed symptoms Pain Score: 5 (Moderate to Severe Pain) Utilized the Triage Tool: Yes Chief Complaint: Knee Pain System WHEN: Within 3 Days Nurse's Recommendation / WHEN: Within 2 Weeks System WHERE: Clinic Nurse's Recommendation / WHERE: Clinic[facility] WHEN/WHERE modifier reason: Other Other - Modifiers: no acute symptoms or injuries Patient Disposition Patient/Caregiver agrees to plan of care: Yes Nursing Plan and Disposition Other course(s) of action Generated msg to PACT/Provider Provided guidance for worsening symptoms: *Caller/Patient* advised to call facilities [place] Clinical Contact Center or seek immediate medical attention for new or worsening symptoms Nurse Summary Nurse Summary: PATIENT CONCERN/DURATION/ONSET: -[place] c/o right knee pain for 3 months worse over the last 3 weeks. He reports pain 5/10 and tightness to medial right knee, feels some crunching when crossing legs or navigating stairs. - is returning missed call from PACT, VM left for him to call and schedule appt for 10/26/23, principal technical writer attempted to scheduled but no open slots available. Requesting call back to for scheduling, also states he is available anytime on 10/26/23 for scheduling. -See [facility] script for symptom assessment, pertinent positives and negatives. WHAT HAS PATIENT TRIED TO TREAT THE SYMPTOMS: No home measures HISTORY/PREVIOUS TREATMENT: neuropathy left arm WHAT IS PATIENT GOAL FOR THE CALL: knee pain DIRECTOR EMERGENCY SERVICES DISPOSITION: Recommended triage is <2 weeks for evaluation of knee pain because no acute symptoms or injuries -Unable to schedule appt within recommended time frame. Alerting PACT through [place] for follow up per SOP. -Advised caller to call back immediately if any of the signs or symptoms noted above worsen. Caller verbalizes understanding and agreement with plan. Best contact for is (verified) [phone] This note was created by a [address] heel scorer. Please do not alert this nurse by adding as a signer for future communications. Alerts are not monitored by this user, please reach out to [facility] Leadership instead if indicated. Clinical Contact Center Codes Clinic/Location: [address] PHONE [facility] RN [place] Triage Complete Triage Date: 10/08/2023, 04:29 PM Triage Note: Phone Triage Nelda, 08 Oct 2023 21:26:07 +0000 [facility] Demographics 48 y/o Male Results CC: Knee Pain Software suggested: Within 3 Days Software suggested follow-up location: Clinic, consider virtual care Values and Measures Duration of CC: 3 Weeks Positive Responses HPI: knee pain, moderate to severe VS: temperature not taken Negative Responses Denies: HPI: knee injury, within past 2 days Denies: HPI: knee pain, radiates from back Denies: HPI: knee pain, severe Denies: HPI: knee pain, worsening Denies: HPI: knee swelling, with knee pain Denies: HPI: leg numbness, new Denies: HPI: leg swelling, localized below the painful knee Denies: HPI: lymph node pain, lymph node swelling, inguinal Denies: HPI: pain, radiation down back of leg Denies: HPI: red streaks, from a spot on the knee Denies: HPI: skin erythema, knee Denies: HPI: skin lump, swollen, painful, over the knee Denies: HPI: skin swelling, knee, worsening Denies: HPI: skin tenderness, knee, worsening Denies: HPI: unable to walk Denies: PMH: clotting disorder Denies: PMH: gout Denies: PMH: rheumatoid arthritis Denies: PSH: knee surgery, within past week Education Log Home care for knee pain due to arthritis or a minor injury includes: Avoid activities that cause pain. Apply a cold compress: Wrap ice in a moist hand towel. Do not apply ice directly to the skin. Apply for 20-30 minutes, every 1-2 hours, for the first few days. Apply warm compresses: Apply for 20-30 minutes, every 4 hours, after 2 days Rest the knee: Use a walker. Use crutches. Elevate your knee to minimize swelling. Apply an elastic wrap to the knee. Re-wrap the joint every 6 hours. Take prescribed medications as directed: Don't skip doses of your medication. This makes them less effective. Be aware of the common side effects that may be caused by your medication. Ask your provider if you can take acetaminophen for pain. Ask your provider if you can take nonprescription nonsteroidal anti-inflammatory medications for pain: Ibuprofen Naproxen Notify your provider if you have knee pain and any of the following: Inability to stand or walk Knee pain that does not improve over three days Worsening knee swelling Worsening knee pain Worsening fever Worsening knee tenderness Worsening skin redness and pain Red streaks form on the leg [employer]. /justin/ FILIPE SÁNCHEZ RN,BSN VISN 23 [facility] Signed: 10/08/2023 16:40 FILIPE SÁNCHEZ [facility]
--- OUTSIDE RECORDS SUMMARY | 2023-12-27 00:58 | XMS_ITS | Encounter Summary ---
Author Name [facility] [place] [place] Organization [facility] [place] Address [address] [place] [address] Care Team Providers Care Vertica Architect Name Role Phone ADRIAN MCGILL Primary Care [...] Name Patient's Relationship to Policy Mercer BCBS [facility] (WNR) MEDICAID MEDIC AID (WNR) May 21, 2010 [id number] [phone] LUCY COPELAND PATIENT Selected Encounter This section includes the information on record at [place] for the Encounter. Date/Time Encounter Type Encounter Description Reason Pro vider Source Nov 04, 2023 11:20 AM Outpatient Encounter PRIMARY CARE/MEDICINE IHE Encounter Template Text not used by [place] Plan of Treatment: Future Appointments (+ 6 months) and Future Tests (+/- 45 days) The Plan of Treatment section includes future care activities for the patient from all [place] treatmentfacilities. This section includes future appointments and future orders which are active, pending or scheduled. Future Appointments This section includes appointments that were scheduled to occur 6 months from the date of the Encounter, up to a maximum of 20 appointments. The data comes from all [place] treatment facilities. Appointment Date/Time Appointment Type Appointme nt Facility Name Nov 06, 2023 02:30 PM AMBULATORY - MEDICINE HUSSEIN RAHMAN [facility] Nov 06, 2023 03:00 PM AMBULATORY - NONE [place] [facility] Nov 06, 2023 03:15 PM AMBULATORY - NONE [place] [facility] Dec 07, 2023 07:45 PM AMBULATORY - NONE [place] [facility] Feb 02, 2024 03:00 PM AMBULATORY - SURGERY KARYN [facility]ONL[facility] Active, Pending, and Scheduled Orders This section includes a listing of several types of active, pending, and scheduled orders, including clinic medications orders, diagnostic test orders, procedure orders and consult orders; where the start date of the order is 45 days before the date of the Encounter or 45 days after the date of theEncounter. The data comes from all [facility]. Test Date/Time Test Type Test Details Facility Name Dec 08, 2023 03:54 PM Consult Order ORTHOPEDIC S OUTPT-HIP/KNEE Cons Staffing Executive's Choice [facility] Social History: Smoking Status (Most current) and Tobacco Use (All prior to encounter date) This section includes the most current, and the historical, smoking and tobacco- related health factors from the [place] facility where the Encounter took place. Current Smoking Status This section includes the most current smoking, or tobacco-related health factor, from the [place] facility where the Encounter took place. Date/Time Current Smoking Status Comment Samanta portillo Jul 23, 2023 02:00 PM VA-TOBACCO NEVER USED [facility] Tobacco Use History This section includes a history of the smoking, or tobacco-related health factors, that were collected on or before the date of the Encounter. The data comes from the [place] facility where the Encounter took place. Date/Time Smoking Status/Tobacco Use Comment F acility Jul 16, 2022 10:00 AM VA-TOBACCO DOESNT USE WI 30 MIN WAKEUP [facility] Jul 16, 2022 10:00 AM VA-TOBACCO USE 1 TO < 5 YEARS [facility] Jul 16, 2022 10:00 AM VA-TOBACCO USE ADVICE [facility] Jul 16, 2022 10:00 AM VA-TOBACCO USE .NET DEVELOPER NO [facility] Jul 16, 2022 10:00 AM VA-TOBACCO USE MED NO [facility] Jul 16, 2022 10:00 AM VA-TOBACCO USER SOME DAYS [facility] Jul 20, 2020 03:30 PM VA-TOBACCO DOESNT USE WI 30 MIN WAKEUP [facility] Jul 20, 2020 03:30 PM VA-TOBACCO USE 5 TO 15 YEARS [facility] Jul 20, 2020 03:30 PM VA-TOBACCO USE ADVICE [facility] Jul 20, 2020 03:30 PM VA-TOBACCO USE .NET DEVELOPER NO [facility] Jul 20, 2020 03:30 PM VA-TOBACCO USE MED NO [facility] Jul 20, 2020 03:30 PM VA-TOBACCO USER SOME DAYS [facility] Jan 07, 2019 03:22 PM VA-TOBACCO NEVER USED [facility] Dec 18, 2016 01:05 PM LIFETIME NON-TOBACCO USER [facility] Radiology Reports: +/- 30 days of [...] the Encounter. The data comes from all [place] treatment facilities. Date/Time Radiology Report Provider Source Nov 06, 2023 02:57 PM KNEE RIGHT 3 VIEWS : DAVID COPELAND [id number] -1975 M Exm Date: NOV 06, 2023@14:57 Req Phys: SUDHIR BOWSER Loc: [facility] PACT ROVER 4F (Req'g Loc) Img Loc: MAIN X-RAY Service: [place] [address] (Case [id number] COMPLETE) KNEE RIGHT 3 VIEWS (RAD Detailed) CPT:35749 Proc Modifiers : STANDING RIGHT Reason for Study: persisting medial right knee pain Clinical History: persisting medial right knee pain Responsible provider name and phone number to notify for critical findings if other than user placing the order and pager listed below: User placing orders pager: [phone] LAST CREATININE 1.0 (07/23/23) Report Status: Verified Date Reported: NOV 06, 2023 Date Verified: NOV 06, 2023 Resource Manager Forester E-Sig:/ES/KEITH SALAZAR MD Report: EXAMINATION: KNEE RIGHT 3 VIEWS, 11/06/2023 2:57 PM COMPARISON: None HISTORY: Reason for Study: persisting medial right knee pain persisting medial right knee pain Responsible provider name and phone number to notify for critical findings if other than user placing the order and pager listed below: User placing orders pager: [phone] LAST CREATININE 1.0 (07/23/23) Impression: Slight/early narrowing of the medial compartment joint space. Lateral and patellofemoral compartment joint spaces appear maintained. No acute fracture or dislocation is identified. Trace amount of suprapatellar joint fluid. Fabella, anatomic variant. Primary Interpreting Staff: KEITH SALAZAR MD, RADIOLOGIST (Resource Manager Forester) /KEITH PITTS [facility] Encounter Notes: All associated encounter notes This section contains the clinical notes associated to the Encounter. Date/Time Encounter Note(s) Provider Source Nov 04, 2023 01:44 PM ADDENDUM: LOCAL TITLE: Addendum STANDARD TITLE: ADDENDUM DATE OF NOTE: NOV 04, 2023@13:44:53 ENTRY DATE: NOV 04, 2023@13:44:54 AUTHOR: STEFANIA SAWYER EXP COSIGNER: URGENCY: STATUS: COMPLETED Forwarded for MSA attention please. Note rtc order in chart for [place] pending. [place] may be seen by assigned PCP or other available associate PCP. /justin/ STEFANIA SAWYER RN RN Pact Tie Carrier Signed: 11/04/2023 13:46 Receipt Acknowledged By: 11/04/2023 13:57 /justin/ ATA COLEY JR., MSA --- Original Document --- 11/04/23 PATIENT CONTACT NOTE: Patient contact Name of : DAVID COPELAND Name/Relationship of Contact if other than : Date & Time of Contact: Oct@11:20 Type of Contact: MAOS Reason for Contact: station id: [id number] preferred modality: FACE TO FACE phone number: [phone] email: [email or web address] preferred dates:11/09/2023 AM,11/09/2023 PM reason code:MEDICALISSUE comments:Pain, inner right knee. /rachelle [place] AMSA Signed: 11/04/2023 11:21 Receipt Acknowledged By: 11/04/2023 13:44 /rachelle SAWYER RN RN Pact Tie Carrier STEFANIA SAWYER [facility] Nov 04, 2023 11:20 AM REPORT OF CONTACT: LOCAL TITLE: PATIENT CONTACT NOTE STANDARD TITLE: REPORT OF CONTACT DATE OF NOTE: NOV 04, 2023@11:20 ENTRY DATE: NOV 04, 2023@11:20:55 AUTHOR: CHICO [place] EXP COSIGNER: URGENCY: STATUS: COMPLETED PATIENT CONTACT NOTE Has ADDENDA Patient contact Name of : DAVID COPELAND PREET Name/Relationship of Contact if other than [place]: Date & Time of Contact: Oct@11:20 Type of Contact: [facility] Reason for Contact: station id: [id number] preferred modality: FACE TO FACE phone number: [phone] email: [email or web address] preferred dates:11/09/2023 AM,11/09/2023 PM reason code:MEDICALISSUE comments:Pain, inner right knee. /rachelle [place] AMSA Signed: 11/04/2023 11:21 Receipt Acknowledged By: 11/04/2023 13:44 /justin/ STEFANIA SAWYER RN RN Pact Tie Carrier 11/04/2023 ADDENDUM STATUS: COMPLETED Forwarded for MSA attention please. Note rtc order in chart for [place] pending. [place] may be seen by assigned PCP or other available associate PCP. /rachelle SAWYER RN RN Pact Tie Carrier Signed: 11/04/2023 13:46 Receipt Acknowledged By: * AWAITING SIGNATURE * ATA COLEY JR, SAI THAO [facility]
--- OUTSIDE RECORDS SUMMARY | 2023-12-27 00:59 | XMS_ITS | Encounter Summary ---
Author Name [facility] [facility] Address [address] [place] [address] Care Team Providers Care Construction Equipment Operator Name Role Phone ADRIAN MCGILL Primary Care [...] Name Patient's Relationship to Policy [facility] [employer] [facility] (WNR) MEDICAID MEDIC AID (WNR) May 21, 2010 [id number] [phone] LUCY COPELAND PATIENT Selected Encounter This section includes the information on record at [place] for the Encounter. Date/Time Encounter Type Encounter Description Reason Pro vider Source Dec 08, 2023 03:53 PM Outpatient Encounter PRIMARY CARE/MEDICINE IHE Encounter Template Text not used by [place] Plan of Treatment: Future Appointments (+ 6 months) and Future Tests (+/- 45 days) The Plan of Treatment section includes future care activities for the patient from all [place] treatmentfacilities. This section includes future appointments and future orders which are active, pending or scheduled. Future Appointments This section includes appointments that were scheduled to occur 6 months from the date of the Encounter, up to a maximum of 20 appointments. The data comes from all [place] treatment facilities. Appointment Date/Time Appointment Type Appointme nt Facility Name Feb 02, 2024 03:00 PM AMBULATORY - SURGERY [facility] Active, Pending, and Scheduled Orders This section includes a listing of several types of active, pending, and scheduled orders, including clinic medications orders, diagnostic test orders, procedure orders and consult orders; where the start date of the order is 45 days before the date of the Encounter or 45 days after the date of theEncounter. The data comes from all [place] treatment facilities. Test Date/Time Test Type Test Details Facility Name Dec 08, 2023 03:54 PM Consult Order ORTHOPEDIC S OUTPT-HIP/KNEE Cons Spinning Bath Person's Choice [facility] Social History: Smoking Status (Most current) and Tobacco Use (All prior to encounter date) This section includes the most current, and the historical, smoking and tobacco- related health factors from the [place] facility where the Encounter took place. Current Smoking Status This section includes the most current smoking, or tobacco-related health factor, from the [place] facility where the Encounter took place. Date/Time Current Smoking Status Comment Samanta portillo Jul 23, 2023 02:00 PM VA-TOBACCO NEVER USED [facility] Tobacco Use History This section includes a history of the smoking, or tobacco-related health factors, that were collected on or before the date of the Encounter. The data comes from the [place] facility where the Encounter took place. Date/Time Smoking Status/Tobacco Use Comment F acility Jul 16, 2022 10:00 AM VA-TOBACCO DOESNT USE WI 30 MIN WAKEUP [facility] Jul 16, 2022 10:00 AM VA-TOBACCO USE 1 TO < 5 YEARS [facility] Jul 16, 2022 10:00 AM VA-TOBACCO USE ADVICE [facility] Jul 16, 2022 10:00 AM VA-TOBACCO USE FOOD AND BEVERAGE CHECKER NO [facility] Jul 16, 2022 10:00 AM VA-TOBACCO USE MED NO [facility] Jul 16, 2022 10:00 AM VA-TOBACCO USER SOME DAYS [facility] Jul 20, 2020 03:30 PM VA-TOBACCO DOESNT USE WI 30 MIN [place] [facility] Jul 20, 2020 03:30 PM VA-TOBACCO USE 5 TO 15 YEARS [facility] Jul 20, 2020 03:30 PM VA-TOBACCO USE ADVICE [facility] Jul 20, 2020 03:30 PM VA-TOBACCO USE FOOD AND BEVERAGE CHECKER NO [facility] Jul 20, 2020 03:30 PM VA-TOBACCO USE MED NO [facility] Jul 20, 2020 03:30 PM VA-TOBACCO USER SOME DAYS [facility] Jan 07, 2019 03:22 PM VA-TOBACCO NEVER USED [facility] Dec 18, 2016 01:05 PM LIFETIME NON-TOBACCO USER [facility] Radiology Reports: +/- 30 days of [...] the Encounter. The data comes from all [place] treatment facilities. Date/Time Radiology Report Provider Source Dec 07, 2023 07:52 PM MRI KNEE RIGHT W/O CONTRAST: DAVID COPELAND [id number] -[id number] M Exm Date: DEC 07, 2023@19:52 Req Phys: SUDHIR LI Loc: [facility] PACT ROVER 4F (Req'g Loc) Img Loc: MRI IMAGING Service: [place] [address] (Case [id number] COMPLETE) MRI KNEE RIGHT W/O CONTRAST (MRI Detailed) CPT:24853 Reason for Study: patient with worsening right medial knee pain for over 6 months Clinical History: Per Joint Commission Standards, by signing this diagnostic imaging request the ordering provider confirms they have considered patients age and recent imaging history. patient with worsening right medial knee pain for over 6 months Responsible provider name and phone number to notify for critical findings findings if other than user placing the order and pager listed below: User placing orders pager: [phone] LAST CREATININE 1.0 (07/23/23) Allergies: CONTRAST MEDIA (Dec 18, 2016) Report Status: Verified Date Reported: DEC 08, 2023 Date Verified: DEC 08, 2023 Gift Officer E-Sig:/ES/SONJA THORNE MD Report: Exam: Right knee MRI without contrast 12/08/2023 History: 48-year-old male with history of right knee pain x7-8 months. No history of falls or trauma. No previous injuries or surgeries. Comparison: None. Technique: Multiplanar multisequence MR imaging of the right knee without the intravenous administration of gadolinium based contrast media. Findings: Joint effusion: Physiologic amount of joint fluid. Minimal amount of fluid seen within the popliteal fossa, consistent with trace popliteal cyst. Medial compartment: Complex tear involving the posterior horn of the medial meniscus, including both horizontal components extending to the articular surface (series 4 image 24) and vertical longitudinal component (series 6 image 16 and series 4 image 23). No high-grade articular cartilage loss. Lateral compartment: Normal lateral meniscus. No high-grade articular cartilage loss. Patellofemoral compartment: Normal patellar alignment and patellar retinacula. Normal retropatellar and trochlear articular cartilage. Tendons: Quadriceps, patellar, and popliteus tendons are normal. Ligaments: Intermediate T2 signal within the anterior cruciate ligament with mild surrounding edema. The posterior cruciate ligament is within normal limits. The medial collateral ligament is normal in caliber and signal with mild surrounding edema. The lateral collateral ligament is within normal limits. Bones/soft tissues: Normal marrow signal, without aggressive osseous lesion or fracture. No muscular or subcutaneous soft tissue swelling. Impression: 1. Complex tear involving the posterior horn of the medial meniscus including both horizontal and vertical longitudinal components. 2. Intermediate T2 signal within the anterior cruciate ligament with mild surrounding edema, compatible with sequelae of mild sprain. 3. Mild medial collateral ligament sprain. I, Sonja Thorne, have reviewed the images and report. Primary Interpreting Staff: SONJA THORNE MD, RADIOLOGIST (Gift Officer) Primary Interpreting Resident: EM FLORENCE DO, CONTENT MANAGEMENT SPECIALIST /SONJA STARR [facility] Encounter Notes: All associated encounter notes This section contains the clinical notes associated to the Encounter. Date/Time Encounter Note(s) Provider Source Dec 08, 2023 03:53 PM LETTERS: LOCAL TITLE: FOLLOW UP RESULTS LETTER STANDARD TITLE: LETTERS DATE OF NOTE: DEC 08, 2023@15:53 ENTRY DATE: DEC 08, 2023@15:53:45 AUTHOR: SUDHIR LI EXP COSIGNER: URGENCY: STATUS: COMPLETED [facility] [address] [place] [address] Nov DAVID COPELAND [facility] [address] Dear : I am writing to inform you of the results of testing that you had done recently at the [facility]. Impression: 1. Complex tear involving the posterior horn of the medial meniscus including both horizontal and vertical longitudinal components. 2. Intermediate T2 signal within the anterior cruciate ligament with mild surrounding edema, compatible with sequelae of mild sprain. 3. Mild medial collateral ligament sprain. An Orthopedics consult has been placed. If you have any further questions or problems, please contact our nursing staff or provider at the following number: [phone]. Sincerely, Sudhir Li PA-C Physician Sewer Pipe Cleaner SUDHIR LI [facility]
[2023-12-27] MEDS: ONDANSETRON 2 MG/ML inj 4 MG IVP (02:40)
--- NOTE | 2023-12-27 05:00 | ED.NURSE ---
Road test attempted for patient. Pt able to move legs to side of bed. Pt felt weak but stated he felt great for being able to move, just can't walk yet. Pt also drinking fluids and finished sandwich without nausea.
[2023-12-27] MEDS: predniSONE 20 MG TABLET 40 MG PO (05:05)
== END 2023-12-27 09:28 | disposition home or self-care (01) ==
PROVIDERS: Emergency Provider Family Medicine
DX: S39.012A Strain of muscle, fascia and tendon of lower back, initial encounter (principal); M62.830 Muscle spasm of back; T40.2X5A Adverse effect of other opioids, initial encounter
CPT/HCPCS: 81001; 93005; 96360; 96361; 96372; 99284; J1170; J1885; J2405; J7030; J7512